=== PATIENT | male | born 1945 | race Caucasian/White ===

== ENCOUNTER 2023-01-19 00:15 | Inpatient (IN) | payer MEDICARE, OTHER, SELFPAY ==
[2023-01-19] VITALS (36 sets, daily range): BP systolic 122–153; BP diastolic 68–95; PULSE 65–109; RESP 12–26; TEMP 36.4–37.1; O2SAT 95–99; BMI 30.6
--- NOTE | 2023-01-19 | ECHO_ITS ---
Patient Info Name: Mac Saldaña Age: 77 years : 1945 Gender: Male Ht: 70 in Wt: 224 lbs BSA: 2.27 m2 HR: 65 bpm BP: 138 / 80 mmHg Heart Rhythm: Sinus Rhythm Technical Quality: Good Exam Date: 01/19/2023 1:40 PM Exam Location: [facility] Pulmonary Patient Status: Inpatient Admit Date: 01/19/2023 Staff Ordering Physician: Mary Ann Rodriguez PA-C Per Diem Physical Therapist: Abiel Canseco RDCS Attending Provider: Sanjay Guzman MD Referring Physician: Michael MURPHY; Exam Type: CA echo doppler color flow Study Info Indications - possible CHF Complete two-dimensional, color flow and Doppler transthoracic echocardiogram is performed. Summary 1. Complete two-dimensional, color flow and Doppler transthoracic echocardiogram is performed. 2. Normal left ventricular size and function. mild left ventricular hypertrophy with sigmoid hypertrophy. Ejection fraction 60-65%. Grade 2 diastolic dysfunction is present. 3. There is severe aortic valve calcification and likely moderate aortic valve stenosis. The peak transvalvular velocity is 2.9 M/SEC, mean gradient 19 mmHg, aortic valve TVI 64. For unknown reasons the aortic valve area was not calculated on this study. Trace aortic insufficiency. 4. There is mild tricuspid valve regurgitation. 5. No pulmonary hypertension, estimated pulmonary arterial systolic pressure is 31 mmHg. 6. Left atrial chamber dimension is moderately enlarged. 7. Underlying rhythm appears to be atrial fibrillation. Left Ventricle Left ventricular chamber dimension is normal. Left ventricular systolic function is normal, estimated at 60-65%. There is mildly increased left ventricular wall thickness. Left ventricular septal wall motion is normal. The left ventricular diastolic function is grade II diastolic dysfunction. Right Ventricle Right ventricular chamber dimension is normal. Right ventricular systolic function is normal. Left Atria Left atrial chamber dimension is moderately enlarged. Right Atria Right atrial chamber dimension is normal. Aortic Valve The aortic valve is trileaflet. There is no aortic valve sclerosis. There is severe aortic valve calcification and likely moderate aortic valve stenosis. The peak transvalvular velocity is 2.9 M/SEC, mean gradient 19 mmHg, aortic valve TVI 64. For unknown reasons the aortic valve area was not calculated on this study. Trace aortic insufficiency. There is trace aortic valve regurgitation. There is severe aortic valve calcification. Pulmonic Valve The pulmonic valve is normal. There is no pulmonic valve stenosis. There is no pulmonic regurgitation. Mitral Valve The mitral valve has normal leaflets. There is no mitral valve stenosis. There is no mitral valve regurgitation. The mitral valve annulus is moderately calcified. Tricuspid Valve The tricuspid valve leaflets are normal. There is no significant tricuspid valve stenosis. There is mild tricuspid valve regurgitation. No pulmonary hypertension, estimated pulmonary arterial systolic pressure is 31 mmHg. Pericardium/Pleural The pericardium appears normal. There is no pericardial effusion. Inferior Vena Cava Not well visualized inferior vena cava with >50% collapse upon inspiration consistent with Empty right atrial pressure, 10 mmHg. Aorta The aortic root size at the sinus of Valsalva is normal. The prox ascending aorta size is normal. Left Ventricular Outflow Tract Name Value Normal
--- NOTE | ~2023-01-19 | XR_ITS ---
EXAMINATION: XR chest 1V portable DATE: 01/19/2023 00:56 INDICATION: New onset atrial fibrillation, weakness and shortness of breath TECHNIQUE: frontal view of the chest was obtained. COMPARISON: Chest radiograph dated 04/14/2018 FINDINGS: Cardiomegaly with decreasing pulmonary vascular congestion. Mild increased interstitial pattern in th e lower lung zones consistent with mild pulmonary edema. I see chronic pleural parenchymal scarring a long the right lung base. No pneumothorax or definitive pleural effusion. Bilateral old healed clavic le fracture and multiple bilateral old healed rib fractures. IMPRESSION: 1. Likely congestive heart failure with cardiomegaly, pulmonary vascular congestion and mild bibasila r pulmonary edema. Reviewed, dictated and finalized at location A. IMPRESSION: 1. Likely congestive heart failure with cardiomegaly, pulmonary vascular conges tion and mild bibasilar pulmonary edema.
--- NOTE | ~2023-01-19 | CT_ITS ---
EXAMINATION: CTA chest PE protocol DATE: 01/19/2023 03:34 INDICATION: Dyspnea on exertion. Chest heaviness. TECHNIQUE: Computed tomography angiography (CTA) of the chest was performed with 100 mL Omnipaque-350 intravenous contrast timed to evaluate the pulmonary arteries. Coronal maximum intensity projection 3D-reconstructions were created by the technologist. Automated exposure control and iterative reconst ruction technique were employed. The dose-length product was 1072.71 mGy-cm. COMPARISON: None. FINDINGS: The lungs demonstrate mild atelectasis. There is smooth septal thickening bilaterally, cons istent mild pulmonary edema. Calcified right lung nodules and calcified right hilar lymph nodes are c onsistent with old granulomatous disease. No pleural effusion. There is left atrial enlargement of th e heart. There are coronary artery calcifications. There are calcifications of the aortic valve. No p ericardial effusion. There are cysts in the kidneys measuring up to 3.5 cm on the left. Aortic athero sclerosis is noted. There is no pulmonary embolus. There are bridging endplate osteophytes at multipl e levels in the spine, consistent with diffuse idiopathic skeletal hyperostosis (DISH). There are old healed fractures of the clavicles and multiple ribs. IMPRESSION: 1. No pulmonary embolus. Sensitivity is mildly decreased by motion artifact. 2. Mild pulmonary edema. Reviewed, dictated and finalized at location E.
--- NOTE | 2023-01-19 00:20 | ECG_ITS ---
Measurements Intervals [place] Rate: 102 P: RI: 0 QRS: -20 QRSD: 114 T: 27 QT: 342 QTc: 446 Interpretive Statements ATRIAL FIBRILLATION WITH RAPID VENTRICULAR RESPONSE INCOMPLETE RIGHT BUNDLE BRANCH BLOCK [90+ ms QRS DURATION, TERMINAL R IN V1/V2, 40+ ms S IN I/aVL/V4/V5/V6] ABNORMAL RHYTHM ECG NO PREVIOUS ECG AVAILABLE FOR COMPARISON Electronically Signed On 01-19-2023 9:24:24 CDT by Rosalie Courtney M.D.
[2023-01-19 01:10] LABS: Ethanol < 10 mg/dL (<10)
[2023-01-19 01:11] LABS: Anion Gap 6 mmol/L (8-16); Blood Urea Nitrogen 15 mg/dL (9-20); Calcium 9.3 mg/dL (8.4-10.2); Carbon Dioxide 24 mmol/L (22-30); Chloride 98 mmol/L (98-107); Estimated CRCL calculation 80 ml/min; Estimated Glomerular Filt Rate > 60; Glucose 159 mg/dL (65-110); Potassium 3.6 mmol/L (3.4-5.0); Sodium 128 mmol/L (137-145)
[2023-01-19 01:14] LABS: Basophils Absolute Auto 0.1 K/mm3 (0.0-0.1); Basophils Percent Auto 0.7 % (0.2-1.2); Eosinophils Absolute Auto 0.2 K/mm3 (0-0.3); Eosinophils Percent Auto 2.6 % (0-4.4); Hematocrit 40.3 % (42.0-52.0); Hemoglobin 13.6 g/dL (14.0-18.0); Immature Granulocyte Absolute 0.02 K/mm3 (0.00-0.031); Immature Granulocyte Percent A 0.2 % (0-0.5); Lymphocytes Absolute Auto 1.79 K/mm3 (0.9-3.2); Lymphocytes Percent Auto 22.3 % (18.3-44.2); Mean Corpuscular HGB Conc 33.7 g/dl (32-36); Mean Corpuscular Hemoglobin 31.1 pg (26-34); Mean Corpuscular Volume 92.2 fl (80-100); Mean Platelet Volume 9.1 fl (7.4-10.4); Monocytes Absolute Auto 0.8 K/mm3 (0.1-0.6); Monocytes Percent Auto 9.7 % (2.6-8.5); Neutrophils Absolute Auto 5.2 K/mm3 (1.3-6.7); Neutrophils Percent Auto 64.5 % (45.5-73.1); Platelet Count Result 213 k/mm3 (150-375); Red Blood Count 4.37 M/mm3 (4.6-6.20); Red Cell Distribution Width 12.6 % (11.5-14.5)
[2023-01-19 01:26] LABS: Troponin I < 0.012 ng/mL (0.000-0.034)
[2023-01-19 02:15] LABS: Appearance Urine Clear (Clear); Bilirubin Urine Negative (Negative); Blood Urine Negative (Negative); Color Urine Yellow (Yellow); Glucose Urine UA Negative (Negative); Ketones Urine Negative (Negative); Leukocyte Esterase Ur Negative LEU/UL (Negative); Nitrate Urine Negative (Negative); Protein Urine Negative (Negative); Specific Grav Ur 1.013 (1.001-1.035); Urobilinogen Urine 0.2 mg/dL (<2.0); pH Urine 6.5 (5.0-9.0)
--- NOTE | 2023-01-19 02:25 | PC.NURSE ---
Called lab to add on BNP, spoke to Ysabel.
[2023-01-19 02:38] LABS: Add Urine Microscopic? NO
[2023-01-19 03:05] LABS: NT Pro B Type Natriuretic Pept 484 pg/mL (19.9-100)
[2023-01-19] MEDS: LORazepam INJ (*CRX) 2 MG/ML VIAL 1 MG IV PUSH (03:10)
--- NOTE | 2023-01-19 03:20 | PC.NURSE ---
Patient taken to CT via w/c at this time.
--- NOTE | 2023-01-19 03:43 | ED.WEAKNESS ---
HPI - Weakness General Chief complaint: Weakness <Pastora Ryan MD - Last Filed: 01/19/23 07:41> Stated complaint: GEN WKNS S/P CHEST HEAVINESS <Pastora Ryan MD - Last Filed: 01/19/23 07:41> Time Seen by Provider: 01/19/23 00:25 <Pastora Ryan MD - Last Filed: 01/19/23 07:41> History of Present Illness HPI Narrative: Patient reports having some feeling of chest heaviness and dyspnea on exertion that has been ongoing for possibly months, but today earlier was with family and then noticed the sensation again. No history of heart disease, just hypertension. <Pastora Ryan MD - Last Filed: 01/19/23 07:41> Related Data Home medications: Home Medications Medication Instructions Recorded Confirmed amlodipine 10 mg-benazepril 40 mg cap 01/19/23 capsule folic acid 1 mg tablet 01/19/23 losartan 100 tablet 01/19/23 mg-hydrochlorothiazide 25 mg tablet meloxicam 7.5 mg tablet mg 01/19/23 methotrexate sodium 2.5 mg tablet mg 01/19/23 rosuvastatin 10 mg tablet mg 01/19/23 <Pastora Ryan MD - Last Filed: 01/19/23 07:41> Allergies/Adverse reactions: Allergies Allergy/AdvReac Type Severity Reaction Status Date / Time No Known Allergies Allergy Verified 01/19/23 00:28 <Pastora Ryan MD - Last Filed: 01/19/23 07:41> Review of Systems Review of Systems: CONST: No fever. HEENT: No sore throat C/V: Chest heaviness RESP: Dyspnea on exertion GI: No abdominal pain : No dysuria. M/S: No joint pain. SKIN: No rash. NEURO: [No headache or focal numbness or weakness] PSYCH: [No depression] <Pastora Ryan MD - Last Filed: 01/19/23 07:41> Exam Narrative: EXAMINATION OF ORGAN SYSTEMS/BODY AREAS: Constitutional: Vital signs per nursing GENERAL:[No acute distress, non-toxic appearing.] HEAD: Normal with no signs of head trauma. EYES: EOMI, conjunctiva normal ENT: Hearing grossly intact LUNGS: Nonlabored breathing. HEART: Irregularly irregular ABD: [Soft], [nontender to palpation] EXT: Normal range of motion SKIN: [No rashes or lesions.] NEURO: [Alert and oriented x 3. No gross focal sensory or strength deficits.] PSYCH: Normal affect <Pastora Ryan MD - Last Filed: 01/19/23 07:41> Course Reevaluation(s) Reevaluation #1: Patient care was signed out to me by Dr. Hedrick. Dr. Hderick did speak to the hospitalist and patient was admitted to [facility] telemetry. <Juaquin Santana MD - Last Filed: 01/19/23 09:49> Vital Signs Vital signs: Vital Signs Temperature 98.7 F 01/19/23 00:13 Pulse Rate 102 H 01/19/23 00:13 Respiratory Rate 19 01/19/23 00:13 Blood Pressure 152/81 H 01/19/23 00:13 Pulse Oximetry 98 01/19/23 00:13 Oxygen Delivery Room Air 01/19/23 00:13 Temperature 98.7 F 01/19/23 00:13 Pulse Rate 85 01/19/23 09:01 Respiratory Rate 22 H 01/19/23 09:01 Blood Pressure 135/91 H 01/19/23 09:01 Pulse Oximetry 97 01/19/23 09:01 Oxygen Delivery Room Air 01/19/23 00:13 <Pastora Ryan MD - Last Filed: 01/19/23 07:41> Vital Signs Temperature 98.7 F 01/19/23 00:13 Pulse Rate 102 H 01/19/23 00:13 Respiratory Rate 19 01/19/23 00:13 Blood Pressure 152/81 H 01/19/23 00:13 Pulse Oximetry 98 01/19/23 00:13 Oxygen Delivery Room Air 01/19/23 00:13 Temperature 98.7 F 01/19/23 00:13 Pulse Rate 85 01/19/23 09:01 Respiratory Rate 22 H 01/19/23 09:01 Blood Pressure 135/91 H 01/19/23 09:01 Pulse Oximetry 97 01/19/23 09:01 Oxygen Delivery Room Air 01/19/23 00:13 <Juaquin Santana MD - Last Filed: 01/19/23 09:49> MDM - Weakness MDM Narrative Medical decision making narrative: 77-year-old male presenting with new onset atrial fibrillation, unknown actual time of onset since he reports that he has been having some vague symptoms on and off for months. EKG - 12-Lead: Performed at 0023. Interpreted by me. Atrial fibrillation. Rate 102. [Normal] axis. NC-interval n/a. QRS duration [no
[2023-01-19] MEDS: METOPROLOL SUCCINATE EXT REL 25 MG TABCR PO (10:05)
[2023-01-19] MEDS: APIXABAN 5 MG TABLET PO ×2 (10:05→20:43)
--- NOTE | 2023-01-19 11:31 | PM.IMHP ---
H&P: HPI History of Present Illness Date/Time: 01/19/23 11:31 Chief Complaint: Shortness of breath, dizziness Narrative: This is a 77-year-old male with a past medical history of rheumatoid arthritis and hypertension that presented to the ED on 01/19/2023 due to shortness of breath and dizziness. Patient had developed shortness of breath with activity and dizziness in the evening. Patient denies any chest pain, heart palpitations, or visual changes. Patient does have a chronic cough without sputum production. He denies any lower extremity edema. He does have a smoking history and quit in 1996. Prior to that he smoked approximately 4-5 packs a day. He also consumes approximately 10 beers per night. In the ED he was found to have AFib with a heart rate of 102. His troponin was within normal limits and a BNP of 484. His BNP is within normal range for someone his age. Chest x-ray showed some likely congestive heart failure with cardiomegaly, pulmonary vascular congestion and mild bibasilar pulmonary edema. CTA negative for pulmonary embolism. Per patient he has no known history of congestive heart failure. He does have history of a leaky valve and is not sure which valve it is. His last echocardiogram was over a year ago. While in the ED patient received 1 dose of Ativan. He was admitted into observation due to new onset AFib and for a cardiac workup. Review of Systems Review of Systems: All systems reviewed & are unremarkable except as noted in HPI and below PMFSH Past Medical History Medical History (Updated 01/19/23 @ 11:43 by Mary Ann Rodriguez PA-C) A-fib (~01/2023) Hypertension Rheumatoid arthritis Social History Social History Social History: patient lives with his son and [id number]. He drinks about 10 beers per night and has a approximately 40 year smoking history of 4-5 packs per day. He quit smoking in 1996. Smoking status: Former smoker Alcohol intake: current Drinks per week: 7 Substance use: never Lack of Transportation: No Lack of Food: Never True Current Housing: I Have Housing Concerned About Future Housing: No Difficulty Paying Gas/Electric Bills: No Difficulty Paying for Meds: No Currently Unemployed: No Education: Bachelor's Degree Difficulty w/ Childcare or Family Care: No Spiritual care concerns: No Meds Home Medications and Allergies Home Medications Medication Instructions Recorded Confirmed Type amlodipine 10 mg-benazepril 40 mg 1 cap PO DAILY 01/19/23 01/19/23 History capsule folic acid 1 mg tablet 1 mg PO DAILY 01/19/23 01/19/23 History losartan 100 1 tablet PO DAILY 01/19/23 01/19/23 History mg-hydrochlorothiazide 25 mg tablet meloxicam 7.5 mg tablet 7.5 mg PO DAILY 01/19/23 01/19/23 History methotrexate sodium 2.5 mg tablet 10 mg PO WEEKLY 01/19/23 01/19/23 History svfqpcvd-fm-tsndh 300 mcg-K 60 1 tablet PO DAILY 01/19/23 01/19/23 History mcg-lycop 600 mcg-lutein 300 mcg tablet (Centrum Silver Men) rosuvastatin 10 mg tablet 10 mg PO DAILY 01/19/23 01/19/23 History Allergies Allergy/AdvReac Type Severity Reaction Status Date / Time No Known Allergies Allergy Verified 01/19/23 00:28 Vital Signs Vital Signs - 24 hr 01/19/23 00:13 01/19/23 00:17 01/19/23 00:18 Temperature 98.7 F Pulse Rate 102 H 108 H 109 H Respiratory Rate 19 16 22 H Blood Pressure 152/81 H 152/81 H Pulse Oximetry 98 99 97 Oxygen Delivery Room Air 01/19/23 00:30 01/19/23 00:31 01/19/23 00:45 Temperature Pulse Rate 93 94 95 Respiratory Rate 21 H 22 H 18 Blood Pressure 122/68 Pulse Oximetry 97 97 97 Oxygen Delivery 01/19/23 00:46 01/19/23 01:00 01/19/23 01:01 Temperature Pulse Rate 95 91 93 Respiratory Rate 12 23 H 22 H Blood Pressure 124/77 133/73 Pulse Oximetry 97 97 96 Oxygen Delivery 01/19/23 01:15 01/19/23 01:30 01/19/23 01:31 Temperature
[2023-01-19 12:12] LABS: Glucose Point of Care 117 mg/dl (65-105)
[2023-01-19 18:00] LABS: Glucose Point of Care 208 mg/dl (65-105)
[2023-01-20] VITALS (10 sets, daily range): BP systolic 121–141; BP diastolic 73–93; PULSE 78–91; RESP 16–18; TEMP 35.3–36.5; O2SAT 97–99
[2023-01-20 00:32] LABS: Glucose Point of Care 95 mg/dl (65-105)
[2023-01-20 06:11] LABS: Glucose Point of Care 132 mg/dl (65-105)
[2023-01-20 06:33] LABS: Hematocrit 44.8 % (42.0-52.0); Hemoglobin 14.7 g/dL (14.0-18.0); Mean Corpuscular HGB Conc 32.8 g/dl (32-36); Mean Corpuscular Hemoglobin 30.6 pg (26-34); Mean Corpuscular Volume 93.3 fl (80-100); Mean Platelet Volume 9.2 fl (7.4-10.4); Platelet Count Result 222 k/mm3 (150-375); Red Cell Distribution Width 12.4 % (11.5-14.5); White Blood Count 8.3 K/mm3 (4.5-10.0)
[2023-01-20 06:48] LABS: Alanine Aminotransferase 31 U/L (6-50); Albumin Level 4.1 g/dL (3.5-5.1); Alkaline Phosphatase 67 U/L (38-126); Anion Gap 5 mmol/L (8-16); Aspartate Amino Transferase 30 U/L (17-59); Bilirubin,Total 0.6 mg/dL (0.2-1.3); Blood Urea Nitrogen 10 mg/dL (9-20); Calcium 9.3 mg/dL (8.4-10.2); Carbon Dioxide 29 mmol/L (22-30); Chloride 103 mmol/L (98-107); Estimated CRCL calculation 79 ml/min; Estimated Glomerular Filt Rate > 60; Glucose 113 mg/dL (65-110); Potassium 4.1 mmol/L (3.4-5.0); Sodium 137 mmol/L (137-145)
[2023-01-20] MEDS: METOPROLOL SUCCINATE EXT REL 25 MG TABCR PO (08:24)
[2023-01-20] MEDS: amLODIPine BESYLATE 5 MG TABLET 10 MG PO (08:24)
[2023-01-20] MEDS: LOSARTAN POTASSIUM 100 MG TABLET PO (08:24)
[2023-01-20] MEDS: APIXABAN 5 MG TABLET PO ×2 (08:24→20:08)
[2023-01-20 12:09] LABS: Glucose Point of Care 111 mg/dl (65-105)
--- NOTE | 2023-01-20 13:48 | PM.CNCAR ---
Assessment and Plan Assessment and plan (1) Acute diastolic CHF (congestive heart failure): Code(s): I50.31 - Acute diastolic (congestive) heart failure Status: Acute Assessment and Plan: Patient presents with acute diastolic CHF. His chest x-ray looks worse than his proBNP is. He has chronic diastolic dysfunction and chronic aortic stenosis, probably moderate. The new problem appears to be his atrial fibrillation. The rate is controlled now with metoprolol. He has not rec'd any diuretics but I recommend that we give him a couple doses of IV furosemide. --furosemide 20 mg IV push daily --BMP daily (2) A-fib: Onset Date: ~01/2023 Code(s): I48.91 - Unspecified atrial fibrillation Status: Acute Assessment and Plan: Atrial fibrillation with a mildly increased heart rate response, improved with metoprolol. Likely new since he saw his PMD last month when all was well. New onset a fib may be the factor which exacerbated the patient's diastolic dysfunction and caused CHF. --check TSH --counseled patient about AFib --agree with anticoagulation, Eliquis 5 mg b.i.d. started --MAGUI guided cardioversion, probably tomorrow depending on schedule and staffing. --home tomorrow after CV? (3) Aortic stenosis: Code(s): I35.0 - Nonrheumatic aortic (valve) stenosis Status: Acute Assessment and Plan: Aortic stenosis with a mean gradient of 19 mmHg, probably moderate in severity. --can check aortic valve area again by planimetry of the aortic valve, tomorrow with a MAGUI --would like to obtain more echo images as an outpatient to calculate the BENI --follow every 6 months to 1 year --if it becomes severe, consider a TAVR --Request records/echo fr Dr. Glez (4) Alcoholism: Code(s): F10.20 - Alcohol dependence, uncomplicated Status: Acute Assessment and Plan: Drinks 10 beers a day. No history of falls. History of Present Illness History of Present Illness Consult date/time: 01/20/23 13:48 Reason For Visit: afib,chf Narrative: Mr. 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 He has a history of hypertension,, hyperlipidemia, rheumatoid arthritis as well as heavy alcohol consumption (10 beers/day). The patient has a history of valve disease and was getting an echo every year until Dr. Glez retired last year. He saw his primary care doctor, Dr. Burrows, last month and all was well. He has had some LUNA walking to the mailbox biplane did on the heated humidity. Saturday he was able to run errands and do chores but noted he was a little short of breath in the afternoon and had to stop and rest. He went back to work and in the evening he noted several episodes of LUNA with minor exertion such as walking a few feet and he felt a little dizzy. No chest pain, palpitations, edema. Presented to the emergency room at midnight yesterday with shortness of breath and dizziness. He is found to have AFib with a heart rate of 102. He also has new onset of CHF. He was given IV Ativan and started on metoprolol and Eliquis. No diuretics as yet. Not needing O2. No orthopnea. TSH? Troponin negative x1, proBNP 484, no TSH as yet. 01/19/2023 EKG at at 12:23 a.m.: AFib rate 102, no ischemic changes, personally reviewed Echo showed EF 60-65%, diastolic dysfunction and severe aortic valve calcification with probably moderate aortic stenosis, (peak velocity 2.9 m/sec, mean gradient 19 mmHg) 01/19/2023 chest x-ray: 1. Likely congestive heart failure with cardiomegaly, pulmonary vascular congestion and mild bibasilar pulmonary edema. Personally reviewed, agree. CTA: IMPRESSION: 1. No pulmonary embolus. Sensitivity is mildly decreased by motion artifact. 2. Mild pulmonary edema Also has coronary artery calcifications
--- NOTE | 2023-01-20 15:06 | PM.IMPN ---
Progress Note: A&P Assessment and Plan (1) A-fib: Onset Date: ~01/2023 Qualifiers: Atrial fibrillation type: unspecified Qualified Code(s): I48.91 - Unspecified atrial fibrillation Code(s): I48.91 - Unspecified atrial fibrillation Status: Acute Assessment and Plan: Patient found to have AFib with a heart rate of 102 in the ED. Chest x-ray concerning for possible CHF. BNP within normal range of patient's age and troponin negative in the ED. Patient started on Eliquis 5 mg b.i.d. and metoprolol XR 25 mg daily. Will consult care coordination for medication pricing. Echocardiogram evealing grade 2 diastolic dysfunction with preserved ejection fraction with moderate aortic stenosis. Cardiology consulted. Cardiology planning for possible CHRIS guided cardioversion tomorrow. (2) Congestive heart failure: Qualifiers: Heart failure type: diastolic Heart failure chronicity: acute on chronic Qualified Code(s): I50.33 - Acute on chronic diastolic (congestive) heart failure Code(s): I50.9 - Heart failure, unspecified Status: Acute Assessment and Plan: echocardiogram revealing grade 2 diastolic dysfunction with preserved ejection fraction and moderate aortic stenosis. Cardiology consulted. Cardiology recommending furosemide 20 mg IV push daily. Chris tomorrow to evaluate aortic valve. Recommending follow-up with Cardiology as an outpatient. (3) Hyponatremia: Code(s): E87.1 - Hypo-osmolality and hyponatremia Status: Acute Assessment and Plan: Likely due to patient's Hydrochlorothiazide. Will put diuretics on hold for now. (4) Alcoholism: Code(s): F10.20 - Alcohol dependence, uncomplicated Status: Acute Assessment and Plan: patient drinks approximately 10 beers per night. Initiate CIWA protocol Ativan p.r.n. for CIWA greater than 8. Alcohol level less than 10 on arrival to ED. Plan Patient was on an Bandar and an Arb. Benazepril discontinued. Subjective Date/time seen: 01/20/23 15:06 Interval history: Patient feeling well today. Patient is up to the side of the bed in a good mood. States that he has not had any symptoms of shortness of breath, dizziness, chest tightness, heart palpitations or lightheadedness. Discussed with patient the need for a Cardiology consult due to patient's diastolic dysfunction. He was agreeable. Exam Narrative: GENERAL: Comfortable, no acute distress HENMT: moist mucous membranes EYES: EOM intact b/l NECK: no lymphadenopathy RESPIRATORY: clear to auscultation but distant breath sounds CARDIO: Irregular rhythm rate controlled, murmur present GI: soft, nontender, bowel sounds present SKIN: no rashes EXTREMITIES: no edema, redness or tenderness Objective Data Vital Signs Vital Signs: Vital Signs - 24 hr 01/19/23 16:00 01/19/23 20:00 01/19/23 20:00 Temperature Pulse Rate 88 79 Respiratory Rate Blood Pressure Pulse Oximetry 97 Oxygen Delivery Room Air 01/19/23 22:00 01/20/23 00:00 01/20/23 06:00 Temperature 97.5 F L 97.2 F L Pulse Rate 87 83 85 Respiratory Rate 14 16 Blood Pressure 153/83 H 141/93 H Pulse Oximetry 98 97 Oxygen Delivery 01/20/23 08:24 01/20/23 08:25 01/20/23 09:23 Temperature Pulse Rate 91 Respiratory Rate Blood Pressure Pulse Oximetry 97 Oxygen Delivery Room Air Room Air 01/20/23 08:00 01/20/23 12:00 01/20/23 14:00 Temperature 97.7 F Pulse Rate 88 83 80 Respiratory Rate 16 Blood Pressure 121/73 Pulse Oximetry 99 Oxygen Delivery Intake/Output Intake/Output: Intake & Output 01/17/23 01/18/23 01/19/23 01/20/23 23:59 23:59 23:59 23:59 Intake Total 480 470 Output Total 2100 3033 Ywoxart -[id number] -992 Meds/Results Medications: Active Medications Generic Name Dose Route Start Last Admin Trade Name Freq PRN Reason Stop Dose Ad
[2023-01-20] MEDS: FUROSEMIDE INJ 40 MG/4 ML VIAL 20 MG IV PUSH (15:39)
[2023-01-21] VITALS (10 sets, daily range): BP systolic 104–147; BP diastolic 64–90; PULSE 67–85; RESP 18; TEMP 35.7–36.3; O2SAT 93–100
[2023-01-21 00:14] LABS: Glucose Point of Care 106 mg/dl (65-105)
[2023-01-21 06:19] LABS: Hematocrit 44.4 % (42.0-52.0); Hemoglobin 14.8 g/dL (14.0-18.0); Mean Corpuscular HGB Conc 33.3 g/dl (32-36); Mean Corpuscular Hemoglobin 31.2 pg (26-34); Mean Corpuscular Volume 93.5 fl (80-100); Mean Platelet Volume 8.9 fl (7.4-10.4); Platelet Count Result 202 k/mm3 (150-375); Red Blood Count 4.75 M/mm3 (4.6-6.20); Red Cell Distribution Width 12.6 % (11.5-14.5); White Blood Count 8.5 K/mm3 (4.5-10.0)
[2023-01-21 06:32] LABS: Anion Gap 5 mmol/L (8-16); Blood Urea Nitrogen 12 mg/dL (9-20); Calcium 9.2 mg/dL (8.4-10.2); Carbon Dioxide 26 mmol/L (22-30); Chloride 102 mmol/L (98-107); Estimated CRCL calculation 79 ml/min; Estimated Glomerular Filt Rate > 60; Glucose 115 mg/dL (65-110); Potassium 4.1 mmol/L (3.4-5.0); Sodium 133 mmol/L (137-145)
[2023-01-21 06:46] LABS: NT Pro B Type Natriuretic Pept 590 pg/mL (19.9-100)
[2023-01-21 06:49] LABS: Glucose Point of Care 123 mg/dl (65-105)
[2023-01-21] MEDS: amLODIPine BESYLATE 5 MG TABLET 10 MG PO (09:15)
[2023-01-21] MEDS: APIXABAN 5 MG TABLET PO ×2 (09:16→21:03)
[2023-01-21] MEDS: FUROSEMIDE INJ 40 MG/4 ML VIAL 20 MG IV PUSH (09:16)
[2023-01-21] MEDS: METOPROLOL SUCCINATE EXT REL 25 MG TABCR PO (09:16)
[2023-01-21] MEDS: LOSARTAN POTASSIUM 100 MG TABLET PO (09:16)
--- NOTE | 2023-01-21 10:38 | PM.PNCARD ---
Progress Note: A&P Assessment and Plan (1) Acute diastolic CHF (congestive heart failure): Code(s): I50.31 - Acute diastolic (congestive) heart failure Status: Acute Assessment and Plan: Patient presents with acute diastolic CHF. His chest x-ray looks worse than his proBNP is. He has chronic diastolic dysfunction and chronic aortic stenosis, probably moderate. The new problem appears to be his atrial fibrillation. The rate is controlled now with metoprolol. --furosemide 20 mg p.o. daily --BMP daily (2) A-fib: Onset Date: ~01/2023 Qualifiers: Atrial fibrillation type: unspecified Qualified Code(s): I48.91 - Unspecified atrial fibrillation Code(s): I48.91 - Unspecified atrial fibrillation Status: Acute Assessment and Plan: Atrial fibrillation with a mildly increased heart rate response, improved with metoprolol. Likely new since he saw his PMD last month when all was well. New onset a fib may be the factor which exacerbated the patient's diastolic dysfunction and caused CHF. --agree with anticoagulation, Eliquis 5 mg b.i.d. started --MAGUI guided cardioversion tomorrow with anesthesia --home tomorrow after CV? (3) Aortic stenosis: Code(s): I35.0 - Nonrheumatic aortic (valve) stenosis Status: Acute Assessment and Plan: Aortic stenosis with a mean gradient of 19 mmHg, probably moderate in severity. --can check aortic valve area again by planimetry of the aortic valve, tomorrow with a MAGUI --would like to obtain more echo images as an outpatient to calculate the BENI --follow every 6 months to 1 year --if it becomes severe, consider a TAVR --Request records/echo fr Dr. Glez (4) Alcoholism: Code(s): F10.20 - Alcohol dependence, uncomplicated Status: Acute Assessment and Plan: Drinks 10 beers a day. No history of falls. Subjective Date/time seen: 01/21/23 10:38 Interval history: Cardiology follow up for atrial fibrillation, , CHF Feeling well today and has no complaints. He denies any chest pain, shortness of breath, palpitations. No swelling. Review of Systems Constitutional: Constitutional: Denies fever(s) Eyes: Eyes: Reports no additional eye complaints ENT: Denies epistaxis Cardiovascular: Cardiovascular: Denies chest pain, Denies pedal edema, Denies lightheadedness, Denies palpitations, Reports dyspnea and Reports dyspnea on exertion Respiratory: Respiratory: Denies chest congestion, Reports dyspnea and Reports dyspnea on exertion Gastrointestinal: Gastrointestinal: Denies abdominal pain and Denies hematochezia Genitourinary: Genitourinary: Denies hematuria Musculoskeletal: Musculoskeletal: Reports no additional musculoskeletal complaints Integumentary/Breasts: Skin/Breast: Reports system reviewed and no additional complaints, except as docu Neurologic: Reports system reviewed and no additional complaints, except as documented, Denies behavioral changes and Denies confusion Psychiatric: Psychiatric: Denies behavioral changes and Denies confusion Endocrine: Endocrine: Denies palpitations Exam Const: General: cooperative, healthy appearing and comfortable; No confusion Orientation/consciousness: oriented to person, patient oriented x3 and No confusion HENMT: Mouth: Yes moist mucous membranes Other: Dentures Eyes: General: appearance normal, both eyes and all related structures EOM: EOMs intact bilaterally Neck: Neck: supple and no JVD Thyroid: thyroid normal Carotids: no bruits Resp: Effort & Inspection: normal respiratory effort Auscultation: crackles (a few scattered crackles) Cardio: Rate: regular rate Rhythm: abnormal rhythm Heart sounds: Murmur heart sound present (3/6 CARIE radiating to the carotid arteries, preserved S2) GI: Inspection: normal to inspection Skin: General skin exam: normal color and no rashes or lesions noted Neuro: General: oriented to person, patient or
[2023-01-21 11:41] LABS: Glucose Point of Care 124 mg/dl (65-105)
--- NOTE | 2023-01-21 13:53 | PM.IMPN ---
Progress Note: A&P Assessment and Plan (1) A-fib: Onset Date: ~01/2023 Qualifiers: Atrial fibrillation type: unspecified Qualified Code(s): I48.91 - Unspecified atrial fibrillation Code(s): I48.91 - Unspecified atrial fibrillation Status: Acute Assessment and Plan: Patient found to have AFib with a heart rate of 102 in the ED. Chest x-ray concerning for possible CHF. BNP within normal range of patient's age and troponin negative in the ED. Patient started on Eliquis 5 mg b.i.d. and metoprolol XR 25 mg daily. Will consult care coordination for medication pricing. Echocardiogram evealing grade 2 diastolic dysfunction with preserved ejection fraction with moderate aortic stenosis. Cardiology consulted. Cardiology planning for possible CHRIS guided cardioversion tomorrow. (2) Congestive heart failure: Qualifiers: Heart failure type: diastolic Heart failure chronicity: acute on chronic Qualified Code(s): I50.33 - Acute on chronic diastolic (congestive) heart failure Code(s): I50.9 - Heart failure, unspecified Status: Acute Assessment and Plan: echocardiogram revealing grade 2 diastolic dysfunction with preserved ejection fraction and moderate aortic stenosis. Cardiology consulted. Cardiology recommending furosemide 20 mg IV push daily. Chris tomorrow to evaluate aortic valve. Recommending follow-up with Cardiology as an outpatient. (3) Hyponatremia: Code(s): E87.1 - Hypo-osmolality and hyponatremia Status: Acute Assessment and Plan: Likely due to patient's Hydrochlorothiazide. Will put diuretics on hold for now. (4) Alcoholism: Code(s): F10.20 - Alcohol dependence, uncomplicated Status: Acute Assessment and Plan: patient drinks approximately 10 beers per night. Initiate CIWA protocol Ativan p.r.n. for CIWA greater than 8. Alcohol level less than 10 on arrival to ED. Plan Patient was on an Bandar and an Arb. Benazepril discontinued. Subjective Date/time seen: 01/21/23 13:53 Interval history: Patient doing well today with no new complaints. He denies chest pain, heart palpitations, shortness of breath and lower extremity edema. Patient scheduled for a CHRIS tomorrow at noon. Cardiology's note he will likely be able to discharge after this. Review of Systems Review of Systems: All systems reviewed & are unremarkable except as noted in HPI and below Exam Narrative: GENERAL: Comfortable, no acute distress HENMT: moist mucous membranes EYES: EOM intact b/l NECK: no lymphadenopathy RESPIRATORY: clear to auscultation but distant breath sounds CARDIO: Irregular rhythm rate controlled, murmur present GI: soft, nontender, bowel sounds present SKIN: no rashes EXTREMITIES: no edema, redness or tenderness Objective Data Vital Signs Vital Signs: Vital Signs - 24 hr 01/20/23 14:00 01/20/23 16:00 01/20/23 20:00 Temperature 97.7 F Pulse Rate 80 87 Respiratory Rate 16 Blood Pressure 121/73 Pulse Oximetry 99 99 Oxygen Delivery Room Air 01/20/23 20:00 01/20/23 22:00 01/20/23 20:00 Temperature 95.6 F L Pulse Rate 78 90 Respiratory Rate 18 Blood Pressure 131/75 131/75 Pulse Oximetry 98 Oxygen Delivery 01/21/23 00:00 01/21/23 04:00 01/20/23 22:00 Temperature 97.1 F L Pulse Rate 80 83 Respiratory Rate Blood Pressure Pulse Oximetry Oxygen Delivery 01/21/23 06:00 01/21/23 09:16 01/21/23 12:00 Temperature 96.3 F L Pulse Rate 82 67 85 Respiratory Rate 18 Blood Pressure 147/90 H Pulse Oximetry 100 Oxygen Delivery 01/21/23 13:22 Temperature 96.8 F L Pulse Rate 79 Respiratory Rate 18 Blood Pressure 104/64 Pulse Oximetry 99 Oxygen Delivery Intake/Output Intake/Output: Intake & Output 01/18/23 01/19/23 01/20/23 01/21/23 23:59 23:59 23:59 23:59 Intake Total 480 1190 440 Outpu
[2023-01-21 17:46] LABS: Glucose Point of Care 97 mg/dl (65-105)
[2023-01-22] VITALS (11 sets, daily range): BP systolic 94–121; BP diastolic 62–77; PULSE 64–104; RESP 14–21; TEMP 36.5–36.9; O2SAT 95–99
--- NOTE | 2023-01-22 | ECG_ITS ---
Measurements Intervals [place] Rate: 71 P: 30 AK: 179 QRS: -37 QRSD: 116 T: 2 QT: 386 QTc: 421 Interpretive Statements SINUS RHYTHM MARKED LEFT AXIS DEVIATION [QRS AXIS < -30] INCOMPLETE RIGHT BUNDLE BRANCH BLOCK [90+ ms QRS DURATION, TERMINAL R IN V1/V2, 40+ ms S IN I/aVL/V4/V5/V6] COMPARED TO ECG 01/22/2023 11:02:25 SINUS RHYTHM REPLACES ATRIAL FIBRILLATION Electronically Signed On 01-22-2023 13:27:20 CDT by Girma Asher M.D.
--- NOTE | 2023-01-22 | ECG_ITS ---
Measurements Intervals [place] Rate: 87 P: OR: 0 QRS: -41 QRSD: 117 T: 18 QT: 362 QTc: 436 Interpretive Statements ATRIAL FIBRILLATION MARKED LEFT AXIS DEVIATION [QRS AXIS < -30] INCOMPLETE RIGHT BUNDLE BRANCH BLOCK [90+ ms QRS DURATION, TERMINAL R IN V1/V2, 40+ ms S IN I/aVL/V4/V5/V6] ABNORMAL ECG COMPARED TO ECG 01/19/2023 00:23:25 NO SIGNIFICANT CHANGE Electronically Signed On 01-22-2023 13:25:38 CDT by Girma Asher M.D.
[2023-01-22 04:18] LABS: Glucose Point of Care 116 mg/dl (65-105)
[2023-01-22 06:14] LABS: Glucose Point of Care 121 mg/dl (65-105)
[2023-01-22 07:22] LABS: Basophils Absolute Auto 0.1 K/mm3 (0.0-0.1); Basophils Percent Auto 0.9 % (0.2-1.2); Eosinophils Absolute Auto 0.2 K/mm3 (0-0.3); Eosinophils Percent Auto 2.6 % (0-4.4); Hematocrit 44.9 % (42.0-52.0); Hemoglobin 14.8 g/dL (14.0-18.0); Immature Granulocyte Absolute 0.04 K/mm3 (0.00-0.031); Immature Granulocyte Percent A 0.5 % (0-0.5); Lymphocytes Absolute Auto 1.91 K/mm3 (0.9-3.2); Lymphocytes Percent Auto 23.6 % (18.3-44.2); Mean Corpuscular Hemoglobin 30.9 pg (26-34); Mean Corpuscular Volume 93.7 fl (80-100); Mean Platelet Volume 9.6 fl (7.4-10.4); Monocytes Absolute Auto 0.9 K/mm3 (0.1-0.6); Monocytes Percent Auto 10.5 % (2.6-8.5); Neutrophils Percent Auto 61.9 % (45.5-73.1); Platelet Count Result 223 k/mm3 (150-375); Red Blood Count 4.79 M/mm3 (4.6-6.20); Red Cell Distribution Width 12.3 % (11.5-14.5); White Blood Count 8.1 K/mm3 (4.5-10.0)
[2023-01-22 07:36] LABS: Alanine Aminotransferase 30 U/L (6-50); Albumin Level 3.9 g/dL (3.5-5.1); Alkaline Phosphatase 66 U/L (38-126); Anion Gap 3 mmol/L (8-16); Aspartate Amino Transferase 33 U/L (17-59); Bilirubin,Total 0.7 mg/dL (0.2-1.3); Blood Urea Nitrogen 13 mg/dL (9-20); Calcium 9.2 mg/dL (8.4-10.2); Carbon Dioxide 27 mmol/L (22-30); Chloride 102 mmol/L (98-107); Estimated CRCL calculation 70 ml/min; Estimated Glomerular Filt Rate > 60; Glucose 107 mg/dL (65-110); Sodium 132 mmol/L (137-145)
[2023-01-22] MEDS: METOPROLOL SUCCINATE EXT REL 25 MG TABCR PO (08:58)
[2023-01-22] MEDS: METHOTREXATE 2.5 MG TAB (*CHEMO) 10 MG PO (08:58)
[2023-01-22] MEDS: APIXABAN 5 MG TABLET PO (08:59)
[2023-01-22] MEDS: amLODIPine BESYLATE 5 MG TABLET 10 MG PO (08:59)
[2023-01-22] MEDS: LOSARTAN POTASSIUM 100 MG TABLET PO (08:59)
[2023-01-22] MEDS: FUROSEMIDE INJ 40 MG/4 ML VIAL 20 MG IV PUSH (09:00)
--- NOTE | 2023-01-22 11:30 | WPDANESEPPF ---
Anes - Initial Pre Proc Eval Procedure: Operation Date: 01/22/23 12:30 Proposed Procedures p Trans Esophageal Echo - Girma Asher MD Date/Time: 01/22/23 11:30 Surgeon: Solomon Guzman MD Pre Op Diagnosis: afib,chf Patient Data Age: 77 Gender: M Height: 1.78 m Weight: 96.9 kg Last Vital Signs Temp 36.9 C 01/22/23 06:00 Pulse 94 01/22/23 09:00 Resp 20 01/22/23 06:00 BP 121/77 01/22/23 06:00 Pulse Ox 97 01/22/23 09:00 O2 Del Method Room Air 01/22/23 09:00 Allergies Allergy/AdvReac Type Severity Reaction Status Date / Time No Known Allergies Allergy Verified 01/19/23 00:28 Home Medications Medication Instructions Recorded Confirmed Type amlodipine 10 mg-benazepril 40 mg 1 cap PO DAILY 01/19/23 01/19/23 History capsule folic acid 1 mg tablet 1 mg PO DAILY 01/19/23 01/19/23 History losartan 100 1 tablet PO DAILY 01/19/23 01/19/23 History mg-hydrochlorothiazide 25 mg tablet meloxicam 7.5 mg tablet 7.5 mg PO DAILY 01/19/23 01/19/23 History methotrexate sodium 2.5 mg tablet 10 mg PO WEEKLY 01/19/23 01/19/23 History ssbapuxh-qa-idsbu 300 mcg-K 60 1 tablet PO DAILY 01/19/23 01/19/23 History mcg-lycop 600 mcg-lutein 300 mcg tablet (Centrum Silver Men) rosuvastatin 10 mg tablet 10 mg PO DAILY 01/19/23 01/19/23 History Laboratory Tests 01/21/23 01/21/23 01/22/23 11:39 17:43 00:52 WBC RBC Hgb Hct MCV MCH MCHC RDW Plt Count MPV Immature Gran % (Auto) Neut % (Auto) Lymph % (Auto) [place] % (Auto) Eos % (Auto) Baso % (Auto) Lymph # (Auto) [place] # (Auto) Eos # (Auto) Baso # (Auto) Abs Immat Gran (auto) Absolute Neuts (auto) Absolute Nucleated RBC Nucleated RBC % Sodium Potassium Chloride Carbon Dioxide Anion Gap BUN Creatinine Estim Creat Clear Calc Estimated GFR Glucose POC Capillary Glucose 124 H mg/dl 97 mg/dl 116 H mg/dl (65-105) (65-105) (65-105) Calcium Total Bilirubin AST ALT Alkaline Phosphatase Total Protein Albumin 01/22/23 01/22/23 05:31 06:24 WBC 8.1 K/mm3 (4.5-10.0) RBC 4.79 M/mm3 (4.6-6.20) Hgb 14.8 g/dL (14.0-18.0) Hct 44.9 % (42.0-52.0) MCV 93.7 fl (80-100) MCH 30.9 pg (26-34) MCHC 33.0 g/dl (32-36) RDW 12.3 % (11.5-14.5) Plt Count 223 k/mm3 (150-375) MPV 9.6 fl (7.4-10.4) Immature Gran % (Auto) 0.5 % (0-0.5) Neut % (Auto) 61.9 % (45.5-73.1) Lymph % (Auto) 23.6 % (18.3-44.2) [place] % (Auto) 10.5 H % (2.6-8.5) Eos % (Auto) 2.6 % (0-4.4) Baso % (Auto) 0.9 % (0.2-1.2) Lymph # (Auto) 1.91 K/mm3 (0.9-3.2) [place] # (Auto) 0.9 H K/mm3 (0.1-0.6) Eos # (Auto) 0.2 K/mm3 (0-0.3) Baso # (Auto) 0.1 K/mm3 (0.0-0.1) Abs Immat Gran (auto) 0.04 H K/mm3 (0.00-0.031) Absolute Neuts (auto) 5.0 K/mm3 (1.3-6.7) Absolute Nucleated RBC 0.0 K/mm3 (0.0-0.012) Nucleated RBC % 0.0 % (0.0-0.2) Sodium 132 L mmol/L (137-145) Potassium 4.0 mmol/L (3.4-5.0) Chloride 102 mmol/L (98-107) Carbon Dioxide 27 mmol/L (22-30) Anion Gap 3 L mmol/L (8-16) BUN 13 mg/dL (9-20) Creatinine 0.90 mg/dL (0.7-1.3) Estim Creat Clear Calc 70 ml/min Estimated GFR > 60 (59 - ) Glucose 107 mg/dL (65-110) POC Capillary Glucose 121 H mg/dl (65-105) Calcium 9.2 mg/dL
--- NOTE | 2023-01-22 12:03 | P.PCNCC_ITS ---
Cardiac Cath Procedure Note Date of procedure:: 01/22/23 Performing physician:: Girma Asher MD Indication:: Atrial fibrillation of unknown duration Aortic valve stenosis Brief clinical history:: This is a 77-year-old man presenting to the hospital with symptoms of weakness/shortness of breath. He is known to have aortic valve stenosis and has developed atrial fibrillation of unknown chronicity. He has been anticoagulated since arrival to the hospital. An attempt at restoring sinus rhythm has been recommended by my partners as well as evaluation of his aortic valve. Procedure Procedure performed:: Chris/cardioversion Sedation/Medication given:: Sedation per Anesthesia. Please see their separately dictated no Estimated blood loss:: No blood loss Procedure note:: Patient was brought to the GI lab in the postabsorptive state in the supine position where he was sedated by the anesthesia service. When adequate sedation was achieved the esophageal ECHO probe was placed into the hypopharynx and advanced into the esophagus without difficulty. Multiplane CHRIS images were obtained as well as Doppler evaluation of the aortic valve. Direct planimetry was performed of the aortic valve. Following confirmation of the absence of left atrial clot the CHRIS probe was removed and the patient was then DC cardioverted with 200 joules in a synchronized fashion x1 shock. Patient is recovering from sedation in the GI lab procedure was uncomplicated and well tolerated. Findings:: The left atrium is moderately enlarged there is spontaneous contrast or smoke in the left atrium but no significant thrombus is identified. The left atrial appendage is dilated there is no visible thrombus in the appendage. The mitral valve leaflets look structurally unremarkable. The left ventricle is of normal size and appears to contract adequately. The aortic valve is a trileaflet apparatus which does have fibrocalcific thickening. Direct planimetry was performed in the short axis view yielding aortic valve area calculated to be 1.8 cm2. There is a trivial amount of aortic regurgitation seen in the left ventricular outflow tract. Following the imaging described above the patient was DC cardioverted with 200 joules in synchronized fashion restoring normal sinus rhythm with heart rate in the 60s. Conclusion:: 1. Chris/cardioversion following confirmation of absence of left atrial thrombus. 2. Normal sinus rhythm restored with 200 joule synchronized shock 3. Mild aortic valve stenosis by direct planimetry Girma Asher MD [facility]
--- NOTE | 2023-01-22 12:07 | ECHO_ITS ---
This document was recreated with the correct Report Title on 08/14/23.? The original document was signed by Girma Asher MD 01/22/23 1207. Date of procedure:: 01/22/23 Performing physician:: Girma Asher MD Indication:: Atrial fibrillation of unknown duration Aortic valve stenosis Brief clinical history:: This is a 77-year-old man presenting to the hospital with symptoms of weakness/shortness of breath. He is known to have aortic valve stenosis and has developed atrial fibrillation of unknown chronicity. He has been anticoagulated since arrival to the hospital. An attempt at restoring sinus rhythm has been recommended by my partners as well as evaluation of his aortic valve. Procedure Procedure performed:: Chris/cardioversion Sedation/Medication given:: Sedation per Anesthesia. Please see their separately dictated no Estimated blood loss:: No blood loss Procedure note:: Patient was brought to the GI lab in the postabsorptive state in the supine position where he was sedated by the anesthesia service. When adequate sedation was achieved the esophageal ECHO probe was placed into the hypopharynx and advanced into the esophagus without difficulty. Multiplane CHRIS images were obtained as well as Doppler evaluation of the aortic valve. Direct planimetry was performed of the aortic valve. Following confirmation of the absence of left atrial clot the CHRIS probe was removed and the patient was then DC cardioverted with 200 joules in a synchronized fashion x1 shock. Patient is recovering from sedation in the GI lab procedure was uncomplicated and well tolerated. Findings:: The left atrium is moderately enlarged there is spontaneous contrast or smoke in the left atrium but no significant thrombus is identified. The left atrial appendage is dilated there is no visible thrombus in the appendage. The mitral valve leaflets look structurally unremarkable. The left ventricle is of normal size and appears to contract adequately. The aortic valve is a trileaflet apparatus which does have fibrocalcific thickening. Direct planimetry was performed in the short axis view yielding aortic valve area calculated to be 1.8 cm2. There is a trivial amount of aortic regurgitation seen in the left ventricular outflow tract. Following the imaging described above the patient was DC cardioverted with 200 joules in synchronized fashion restoring normal sinus rhythm with heart rate in the 60s. Conclusion:: 1. Chris/cardioversion following confirmation of absence of left atrial thrombus. 2. Normal sinus rhythm restored with 200 joule synchronized shock 3. Mild aortic valve stenosis by direct planimetry Girma Asher MD [facility] This report may have been done utilizing a voice recognition system. Attempts have been made to correct errors. However, there may be uncorrected grammatical, spelling, and recognition errors present. Report Initialized date/time: Girma Asher MD 01/22/231206 Electronically signed by: Girma Asher MD 01/22/231206 [facility]
--- NOTE | 2023-01-22 15:44 | PM.DS ---
DS: Admitting Diagnosis Discharge Date 01/22/23 Admitting Diagnosis AFib RVR DS: Discharge Diagnosis Discharge Diagnosis (1) A-fib: Onset Date: ~01/2023 Qualifiers: Atrial fibrillation type: unspecified Qualified Code(s): I48.91 - Unspecified atrial fibrillation Code(s): I48.91 - Unspecified atrial fibrillation Status: Acute (2) Congestive heart failure: Qualifiers: Heart failure chronicity: acute on chronic Heart failure type: diastolic Qualified Code(s): I50.33 - Acute on chronic diastolic (congestive) heart failure Code(s): I50.9 - Heart failure, unspecified Status: Acute (3) Hyponatremia: Code(s): E87.1 - Hypo-osmolality and hyponatremia Status: Acute (4) Alcoholism: Code(s): F10.20 - Alcohol dependence, uncomplicated Status: Acute DS: Summary Hospital Course Hospital Course: This is a 77-year-old male with a past medical history of rheumatoid arthritis and hypertension that presented to the ED on 01/19/2023 due to shortness of breath and dizziness.? Patient had developed shortness of breath with activity and dizziness in the evening.? Patient denies any chest pain, heart palpitations, or visual changes.? Patient does have a chronic cough without sputum production.? He denies any lower extremity edema.? He does have a smoking history and quit in 1996.? Prior to that he smoked approximately 4-5 packs a day.? He also consumes approximately 10 beers per night.? In the ED he was found to have AFib with a heart rate of 102.? His troponin was within normal limits and a BNP of 484.? His BNP is within normal range for someone his age.? Chest x-ray showed some likely congestive heart failure with cardiomegaly, pulmonary vascular congestion and mild bibasilar pulmonary edema.? CTA negative for pulmonary embolism. Per patient he has no known history of congestive heart failure.? Patient was started on Eliquis and metoprolol. Echocardiogram was ordered and revealed grade 2 diastolic dysfunction with preserved ejection fraction. Cardiology was consulted and recommended CHRIS with conversion. Chris performed on 02/06 and patient was converted into sinus rhythm with heart rate in the 60s. Discussed care with Cardiology they cleared patient for discharge after procedure was successful. Patient did well postoperatively and walking about the room independently as well as tolerating diet. Patient's labs and vital signs are stable and he was medically cleared for discharge. See medication adjustments below. Recommended follow-up with Cardiology as an outpatient. Time Spent with Patient Time attestation: Total time spent providing and/or coordinating discharge services: Exam Narrative: GENERAL: Comfortable, no acute distress HENMT: moist mucous membranes EYES: EOM intact b/l NECK: no lymphadenopathy RESPIRATORY: clear to auscultation but distant breath sounds CARDIO: Now rate controlled. RRR. GI: soft, nontender, bowel sounds present SKIN: no rashes EXTREMITIES: no edema, redness or tenderness DS: Data Data Completed and Pending Labs on day of discharge: Labs from last 24 hours 01/22/23 01/22/23 01/22/23 06:24 05:31 00:52 WBC 8.1 RBC 4.79 Hgb 14.8 Hct 44.9 MCV 93.7 MCH 30.9 MCHC 33.0 RDW 12.3 Plt Count 223 MPV 9.6 Immature Gran % (Auto) 0.5 Neut % (Auto) 61.9 Lymph % (Auto) 23.6 [place] % (Auto) 10.5 H Eos % (Auto) 2.6 Baso % (Auto) 0.9 Lymph # (Auto) 1.91 [place] # (Auto) 0.9 H Eos # (Auto) 0.2 Baso # (Auto) 0.1 Abs Immat Gran (auto) 0.04 H Absolute Neuts (auto) 5.0 Absolute Nucleated RBC 0.0 Nucleated RBC % 0.0 Sodium 132 L Potassium 4.0 Chloride 102 Carbon Dioxide 27 Anion Gap 3 L BUN 13 Creatinine 0.90 Estim Creat Clear Calc 70 Estimated GFR > 60 Glucose 107 POC Capillary Glucose 121 H 116 H Calcium 9.2 Total Bilirubin 0
--- NOTE | 2023-01-22 15:45 | PM.IMPN ---
Progress Note: A&P Assessment and Plan (1) A-fib: Onset Date: ~01/2023 Qualifiers: Atrial fibrillation type: unspecified Qualified Code(s): I48.91 - Unspecified atrial fibrillation Code(s): I48.91 - Unspecified atrial fibrillation Status: Acute Assessment and Plan: Patient found to have AFib with a heart rate of 102 in the ED. Chest x-ray concerning for possible CHF. BNP within normal range of patient's age and troponin negative in the ED. Patient started on Eliquis 5 mg b.i.d. and metoprolol XR 25 mg daily. Will consult care coordination for medication pricing. Echocardiogram revealing grade 2 diastolic dysfunction with preserved ejection fraction with moderate aortic stenosis. Cardiology consulted. CHRIS guided cardioversion results pending (2) Congestive heart failure: Qualifiers: Heart failure type: diastolic Heart failure chronicity: acute on chronic Qualified Code(s): I50.33 - Acute on chronic diastolic (congestive) heart failure Code(s): I50.9 - Heart failure, unspecified Status: Acute Assessment and Plan: echocardiogram revealing grade 2 diastolic dysfunction with preserved ejection fraction and moderate aortic stenosis. Cardiology consulted. Cardiology recommending furosemide 20 mg IV push daily. Chris results pending Recommending follow-up with Cardiology as an outpatient. (3) Hyponatremia: Code(s): E87.1 - Hypo-osmolality and hyponatremia Status: Acute Assessment and Plan: Likely due to patient's Hydrochlorothiazide. Will put diuretics on hold for now. (4) Alcoholism: Code(s): F10.20 - Alcohol dependence, uncomplicated Status: Acute Assessment and Plan: patient drinks approximately 10 beers per night. Initiate CIWA protocol Ativan p.r.n. for CIWA greater than 8. Alcohol level less than 10 on arrival to ED. Plan Patient was on an Bandar and an Arb. Benazepril discontinued. Subjective Date/time seen: 01/22/23 15:45 Interval history: Patient doing well today with no new complaints. He has not had any chest pain, heart palpitations shortness of breath or dizziness. Waiting for Cardiology to clear patient before discharge. Patient underwent chris and cardiac ablation today. Awaiting CHRIS results. Exam Narrative: GENERAL: Comfortable, no acute distress HENMT: moist mucous membranes EYES: EOM intact b/l NECK: no lymphadenopathy RESPIRATORY: clear to auscultation but distant breath sounds CARDIO: Irregular rhythm rate controlled, murmur present GI: soft, nontender, bowel sounds present SKIN: no rashes EXTREMITIES: no edema, redness or tenderness Objective Data Vital Signs Vital Signs: Vital Signs - 24 hr 01/21/23 16:00 01/21/23 21:51 01/21/23 20:00 Temperature 97.4 F L Pulse Rate 81 79 76 Respiratory Rate 18 Blood Pressure 126/69 Pulse Oximetry 93 Oxygen Delivery 01/22/23 00:00 01/22/23 04:00 01/22/23 06:00 Temperature 98.5 F Pulse Rate 104 H 89 85 Respiratory Rate 20 Blood Pressure 121/77 Pulse Oximetry 98 Oxygen Delivery 01/22/23 08:58 01/22/23 09:00 01/22/23 09:00 Temperature Pulse Rate 94 102 H 94 Respiratory Rate Blood Pressure Pulse Oximetry 97 Oxygen Delivery Room Air 01/22/23 11:55 01/22/23 12:21 01/22/23 12:01 Temperature Pulse Rate 74 69 70 Respiratory Rate 21 H 18 20 Blood Pressure 110/67 95/65 L 94/62 L Pulse Oximetry 96 95 97 Oxygen Delivery Room Air Room Air Room Air 01/22/23 12:05 01/22/23 12:10 Temperature Pulse Rate 76 69 Respiratory Rate 17 18 Blood Pressure 96/65 L 95/67 L Pulse Oximetry 99 95 Oxygen Delivery Room Air Room Air Intake/Output Intake/Output: Intake & Output 01/19/23 01/20/23 01/21/23 01/22/23 23:59 23:59 23:59 23:59 Intake Total 480 1190 1280 200 Output Total 7661 1199 1600 825 [facility] -[phone]
[2023-01-22 18:15] LABS: Glucose Point of Care 210 mg/dl (65-105)
[2023-01-22] MEDS: INSULIN ASPART (*BKC) 100 UNITS/ML SUB-Q (18:21)
== END 2023-01-22 18:25 | disposition home or self-care (01) | DRG 308 ==
LOC: ANHED 07:41 → ANH3MEDSUR 09:17
PROVIDERS: Internal Medicine Cardiovascular Disease; Specialist; Admitting Provider Internal Medicine; Emergency Provider Emergency Medicine; PCP Internal Medicine; Visit Provider Internal Medicine Critical Care Medicine
PROC: 5A2204Z Restoration of Cardiac Rhythm, Single (ICD-10-PCS; CPT 93312; principal; 2023-01-22 12:30)
PROC: 5A2204Z Restoration of Cardiac Rhythm, Single (ICD-10-PCS; 2023-01-22 12:30)
DX: I48.91 Unspecified atrial fibrillation (principal); I50.31 Acute diastolic (congestive) heart failure; E87.1 Hypo-osmolality and hyponatremia; I11.0 Hypertensive heart disease with heart failure; I35.0 Nonrheumatic aortic (valve) stenosis; M06.9 Rheumatoid arthritis, unspecified; F10.20 Alcohol dependence, uncomplicated; Z87.891 Personal history of nicotine dependence
CPT/HCPCS: 36415; 71045; 71275; 80048; 80053; 80307; 81003; 82948; 83880; 84443; 84484; 85025; 85027; 92960; 93005; 93306; 93312; 93320; 93325; 96374; 99285; A9270; G0378; J1815; J1940; J2060; J2704; J7030; Q9967

== ENCOUNTER 2023-06-06 13:06 | Emergency (ER) | payer MEDICARE, OTHER, SELFPAY ==
[2023-06-06] VITALS (24 sets, daily range): BP systolic 131–148; BP diastolic 68–98; PULSE 61–79; RESP 14–23; TEMP 36.5; O2SAT 95–100
--- NOTE | ~2023-06-06 | XR_ITS ---
EXAMINATION: XR chest 1V portable DATE: 06/06/2023 14:09 INDICATION: Dyspnea TECHNIQUE: frontal view of the chest was obtained. COMPARISON: Chest radiograph and CT dated 01/19/2023 FINDINGS: No significant change in mild bibasilar reticular opacities which could represent atelectasis and/or mild pulmonary edema. No new airspace opacities, pleural effusion or pneumothorax. Mild cardiomegaly. Multiple old bilateral rib fractures and old bilateral clavicle fractures. IMPRESSION: 1. Mild bibasilar opacities and favor atelectasis and/or mild pulmonary edema. 2. Mild cardiomegaly. Reviewed, dictated and finalized at location A. WASHER
--- NOTE | 2023-06-06 13:09 | ECG_ITS ---
Measurements Intervals [place] Rate: 71 P: 22 [place]: 173 QRS: -20 QRSD: 110 T: 29 QT: 377 QTc: 410 Interpretive Statements SINUS RHYTHM WITH MARKED SINUS ARRHYTHMIA INCOMPLETE RIGHT BUNDLE BRANCH BLOCK [90+ ms QRS DURATION, TERMINAL R IN V1/V2, 40+ ms S IN I/aVL/V4/V5/V6] ABNORMAL ECG COMPARED TO ECG 01/22/2023 11:54:16 NO SIGNIFICANT DIFFERENCE Electronically Signed On 06-06-2023 18:04:14 FIELD CONTRACTOR by Girma Asher M.D.
--- NOTE | 2023-06-06 13:38 | ED.SOB ---
HPI - SOB/Dyspnea General Chief Complaint: Shortness of Breath/Dyspnea Stated Complaint: sob Time Seen by Provider: 06/06/23 13:38 Source: patient and family (son) Mode of arrival: EMS Limitations: no limitations History of Present Illness HPI Narrative: this is a 78 year male who presents with dyspnea on exertion. He notes that he was climbing stairs When his legs feel weak and he became winded. he felt like he had run a mile and had difficulty catching his breath. he was diagnosed with atrial fibrillation in January; He is on Eliquis states he takes his medication b.i.d. without missing doses including his morning dose. normally he can walk without issue. he denies any coughs except for cough when he takes a very deep breaths. no fevers. He denies any chest pain though briefly had chest pressure for a few seconds that resolved; this occurred again in the ambulance, again only lasting a few seconds. No sick contacts. Related Data Home Medications Medication Instructions Recorded Confirmed folic acid 1 mg tablet 1 mg PO DAILY 01/19/23 01/19/23 methotrexate sodium 2.5 mg tablet 10 mg PO WEEKLY 01/19/23 01/19/23 [id number]-ka-krdsg 300 mcg-K 60 1 tablet PO DAILY 01/19/23 01/19/23 mcg-lycop 600 mcg-lutein 300 mcg tablet (Centrum Silver Men) rosuvastatin 10 mg tablet 10 mg PO DAILY 01/19/23 01/19/23 Allergies Allergy/AdvReac Type Severity Reaction Status Date / Time No Known Allergies Allergy Verified 01/19/23 00:28 [facility] Past Medical History Medical History (Updated 06/06/23 @ 18:57 by Grisel Wood MD) A-fib (~01/2023) paroxysmal Aortic stenosis Congestive heart failure History of transesophageal echocardiography (MAGUI) Hypertension Rheumatoid arthritis Family History Family History Father Heart disease of sudden cardiac age 64 Mother Cancer cause of Social History Social History Social History: patient lives with his son and [id number]. He drinks about 10 beers per night and has a approximately 40 year smoking history of 4-5 packs per day. He quit smoking in 1996. Smoking status: Former smoker Alcohol intake: current Drinks per week: 7 Substance use: never Lack of Transportation: No Lack of Food: Never True Current Housing: I Have Housing Concerned About Future Housing: No Difficulty Paying Gas/Electric Bills: No Difficulty Paying for Meds: No Currently Unemployed: No Education: Bachelor's Degree Difficulty w/ Childcare or Family Care: No Spiritual care concerns: No Exam Narrative: GENERAL: Well-appearing, well-nourished, and in no acute distress. HEAD: Normocephalic, atraumatic. EYES: Non injected, non icteric ENT: Nares clear, no rhinorrhea or epistaxis. NECK: Supple. CHEST: Clear to auscultation. No respiratory distress. Speaking in full sentences. no wheezes or crackles. HEART: Holosystolic murmur. ABDOMEN: Soft, nondistended. EXTREMITIES: Normal range of motion. No lower extremity edema. SKIN: Warm, dry, no rash. NEURO: No focal deficits. Alert and oriented x3. PSYCH: Normal mood and affect. Exceedingly pleasant, conversant and engaged in care. Course Vital Signs Vital signs: Vital Signs Temperature 97.7 F 06/06/23 13:01 Pulse Rate 70 06/06/23 13:01 Respiratory Rate 17 06/06/23 13:01 Pulse Oximetry 97 06/06/23 13:01 Temperature 97.7 F 06/06/23 13:01 Pulse Rate 65 06/06/23 16:52 Respiratory Rate 20 06/06/23 16:52 Blood Pressure 131/78 06/06/23 16:52 Pulse Oximetry 97 06/06/23 16:52 Oxygen Delivery Room Air 06/06/23 14:09 MDM - SOB/Dyspnea MDM Narrative Medical decision making narrative: This is a 70-year-old past medical history atrial fibrillation, experienced dyspnea on exertion while climbing stairs. Normally at baseline
[2023-06-06 13:39] LABS: Basophils Absolute Auto 0.1 K/mm3 (0.0-0.1); Basophils Percent Auto 0.6 % (0.2-1.2); Eosinophils Absolute Auto 0.2 K/mm3 (0-0.3); Eosinophils Percent Auto 2.7 % (0-4.4); Hematocrit 44.3 % (42.0-52.0); Hemoglobin 14.2 g/dL (14.0-18.0); Immature Granulocyte Absolute 0.02 K/mm3 (0.00-0.031); Immature Granulocyte Percent A 0.2 % (0-0.5); Lymphocytes Absolute Auto 2.17 K/mm3 (0.9-3.2); Lymphocytes Percent Auto 24.8 % (18.3-44.2); Mean Corpuscular HGB Conc 32.1 g/dl (32-36); Mean Corpuscular Hemoglobin 28.3 pg (26-34); Mean Corpuscular Volume 88.4 fl (80-100); Mean Platelet Volume 9.7 fl (7.4-10.4); Monocytes Absolute Auto 0.9 K/mm3 (0.1-0.6); Neutrophils Absolute Auto 5.4 K/mm3 (1.3-6.7); Neutrophils Percent Auto 61.7 % (45.5-73.1); Platelet Count Result 268 k/mm3 (150-375); Red Blood Count 5.01 M/mm3 (4.6-6.20); Red Cell Distribution Width 12.9 % (11.5-14.5); White Blood Count 8.8 K/mm3 (4.5-10.0)
[2023-06-06 13:48] LABS: Alanine Aminotransferase 44 U/L (6-50); Albumin Level 4.1 g/dL (3.5-5.1); Alkaline Phosphatase 89 U/L (38-126); Anion Gap 6 mmol/L (8-16); Aspartate Amino Transferase 33 U/L (17-59); Bilirubin,Total 0.4 mg/dL (0.2-1.3); Blood Urea Nitrogen 14 mg/dL (9-20); Calcium 9.5 mg/dL (8.4-10.2); Carbon Dioxide 28 mmol/L (22-30); Chloride 104 mmol/L (98-107); Estimated CRCL calculation 91 ml/min; Estimated Glomerular Filt Rate > 60; Glucose 113 mg/dL (65-110); Lipase 142 U/L (23-300); Potassium 3.9 mmol/L (3.4-5.0); Sodium 138 mmol/L (137-145)
[2023-06-06 13:51] LABS: Prothrombin Time 13.6 Seconds (11.1-14.7)
[2023-06-06 13:52] LABS: Partial Thromboplastin Time 33.8 SECONDS (22.3-36.8)
[2023-06-06 13:59] LABS: Troponin I < 0.012 ng/mL (0.000-0.034)
[2023-06-06 14:15] LABS: Influenza A QL RT-PCR Negative (Negative); Influenza B QL RT-PCR Negative (Negative); RSV RNA, RT-PCR Negative (Negative); SARS-CoV-2 RNA PCR Negative (Negative)
[2023-06-06 16:05] LABS: NT Pro B Type Natriuretic Pept 156 pg/mL (19.9-100)
--- NOTE | 2023-06-06 16:23 | ECG_ITS ---
Measurements Intervals [place] Rate: 63 P: 21 CO: 155 QRS: -28 QRSD: 110 T: 1 QT: 405 QTc: 416 Interpretive Statements SINUS RHYTHM WITH SINUS ARRHYTHMIA BORDERLINE LEFT AXIS DEVIATION [QRS AXIS < -20] INCOMPLETE RIGHT BUNDLE BRANCH BLOCK [90+ ms QRS DURATION, TERMINAL R IN V1/V2, 40+ ms S IN I/aVL/V4/V5/V6] ABNORMAL ECG COMPARED TO ECG 06/06/2023 13:10:16 NO SIGNIFICANT CHANGES Electronically Signed On 06-06-2023 18:11:10 BOTTOM FINISHER by Girma Asher M.D.
[2023-06-06 16:57] LABS: Troponin I < 0.012 ng/mL (0.000-0.034)
[2023-06-06 17:05] LABS: D Dimer 0.53 ug/mL (<0.48)
== END 2023-06-06 17:54 | disposition home or self-care (01) ==
PROVIDERS: Emergency Medicine; Emergency Provider Student in an Organized Health Care Education/Training Program; PCP Internal Medicine
DX: R06.00 Dyspnea, unspecified (principal); Z20.822 Contact with and (suspected) exposure to COVID-19; I48.0 Paroxysmal atrial fibrillation; I35.0 Nonrheumatic aortic (valve) stenosis; I50.9 Heart failure, unspecified; I11.0 Hypertensive heart disease with heart failure; M06.9 Rheumatoid arthritis, unspecified; Z87.891 Personal history of nicotine dependence; Z79.01 Long term (current) use of anticoagulants; I51.7 Cardiomegaly; R91.8 Other nonspecific abnormal finding of lung field; I45.10 Unspecified right bundle-branch block
CPT/HCPCS: 36415; 71045; 80053; 83690; 83880; 84484; 85025; 85380; 85610; 85730; 87637; 93005; 99284

== ENCOUNTER 2023-07-22 11:19 | Emergency (ER) | payer MEDICARE, OTHER, SELFPAY ==
--- NOTE | ~2023-07-22 | XR_ITS ---
XR chest 2V DATE: 07/22/2023 12:33 INDICATION: Chest tightness, shortness of breath. History of atrial fibrillation. TECHNIQUE: AP and lateral views COMPARISON: None FINDINGS: Heart size is within normal limits. Aortic calcification, ectasia and tortuosity. No hilar or mediastinal enlargement is evident. No pulmonary infiltrate or consolidation, pleural effusion or pulmonary vascular congestion or pneumothorax is noted. Osteopenia. Multiple old bilateral rib fractures, bilateral clavicle fractures. IMPRESSION: No active cardiopulmonary disease Aortic atherosclerosis Osteopenia Reviewed, dictated and finalized at location B. IC WELFARE DIRECTOR
[2023-07-22 11:20] VITALS: BP 153/76; PULSE 100; RESP 18; TEMP 36.9; O2SAT 97
[2023-07-22 11:35] VITALS: O2SAT 97
--- NOTE | 2023-07-22 11:40 | ECG_ITS ---
Measurements Intervals [place] Rate: 91 P: 32 [place]: 170 QRS: -25 QRSD: 114 T: 16 QT: 357 QTc: 441 Interpretive Statements SINUS RHYTHM BORDERLINE LEFT AXIS DEVIATION [QRS AXIS < -20] INCOMPLETE RIGHT BUNDLE BRANCH BLOCK [90+ ms QRS DURATION, TERMINAL R IN V1/V2, 40+ ms S IN I/aVL/V4/V5/V6] ABNORMAL ECG COMPARED TO ECG 06/06/2023 16:29:10 NO SIGNIFICANT CHANGES Electronically Signed On 07-22-2023 16:56:51 PUBLISHING DIRECTOR by Girma Asher M.D.
[2023-07-22 11:41] VITALS: PULSE 93
[2023-07-22 12:27] LABS: Basophils Percent Auto 0.5 % (0.2-1.2); Eosinophils Absolute Auto 0.2 K/mm3 (0-0.3); Eosinophils Percent Auto 2.5 % (0-4.4); Hematocrit 43.7 % (42.0-52.0); Immature Granulocyte Absolute 0.02 K/mm3 (0.00-0.031); Immature Granulocyte Percent A 0.3 % (0-0.5); Lymphocytes Absolute Auto 1.28 K/mm3 (0.9-3.2); Lymphocytes Percent Auto 16.3 % (18.3-44.2); Mean Corpuscular Hemoglobin 28.1 pg (26-34); Mean Corpuscular Volume 87.6 fl (80-100); Mean Platelet Volume 9.5 fl (7.4-10.4); Monocytes Absolute Auto 0.6 K/mm3 (0.1-0.6); Monocytes Percent Auto 8.2 % (2.6-8.5); Neutrophils Absolute Auto 5.7 K/mm3 (1.3-6.7); Neutrophils Percent Auto 72.2 % (45.5-73.1); Platelet Count Result 284 k/mm3 (150-375); Red Blood Count 4.99 M/mm3 (4.6-6.20); Red Cell Distribution Width 13.1 % (11.5-14.5); White Blood Count 7.9 K/mm3 (4.5-10.0)
[2023-07-22 12:35] LABS: INR 1.1; Prothrombin Time 14.4 Seconds (11.1-14.7)
[2023-07-22 12:36] LABS: Partial Thromboplastin Time 38.9 SECONDS (22.3-36.8)
[2023-07-22 12:37] LABS: Alanine Aminotransferase 41 U/L (6-50); Albumin Level 4.1 g/dL (3.5-5.1); Alkaline Phosphatase 101 U/L (38-126); Anion Gap 4 mmol/L (8-16); Aspartate Amino Transferase 31 U/L (17-59); Bilirubin,Total 0.5 mg/dL (0.2-1.3); Blood Urea Nitrogen 12 mg/dL (9-20); Calcium 9.9 mg/dL (8.4-10.2); Carbon Dioxide 31 mmol/L (22-30); Chloride 105 mmol/L (98-107); Estimated CRCL calculation 88 ml/min; Estimated Glomerular Filt Rate > 60; Glucose 152 mg/dL (65-110); Lipase 139 U/L (23-300); Potassium 3.9 mmol/L (3.4-5.0); Sodium 140 mmol/L (137-145)
[2023-07-22 12:49] LABS: Troponin I < 0.012 ng/mL (0.000-0.034)
--- NOTE | 2023-07-22 13:30 | ED.SOB ---
HPI - SOB/Dyspnea General Chief Complaint: Shortness of Breath/Dyspnea Stated Complaint: SOB/chest tightness Time Seen by Provider: 07/22/23 12:27 78-year-old with a history of rheumatoid arthritis, hypertension, hyperlipidemia here with complaints of shortness of breath since this morning. Patient states about 10 30 this morning he felt short of breath while walking. He denied any chest pain. No history of cough or fever or chills. Source: patient Mode of arrival: ambulatory Limitations: no limitations History of Present Illness MD elicited complaint: shortness of breath Timing: improved Severity: moderate Exacerbating factors: exertion Associated symptoms: denies other symptoms Related Data Home oxygen amount: none Home Medications Medication Instructions Recorded Confirmed folic acid 1 mg tablet 1 mg PO DAILY 01/19/23 01/19/23 methotrexate sodium 2.5 mg tablet 10 mg PO WEEKLY 01/19/23 01/19/23 [id number]-mh-cjihf 300 mcg-K 60 1 tablet PO DAILY 01/19/23 01/19/23 mcg-lycop 600 mcg-lutein 300 mcg tablet (Centrum Silver Men) rosuvastatin 10 mg tablet 10 mg PO DAILY 01/19/23 01/19/23 Allergies Allergy/AdvReac Type Severity Reaction Status Date / Time No Known Allergies Allergy Verified 01/19/23 00:28 Review of Systems Review of Systems: All systems reviewed & are unremarkable except as noted in HPI and below Constitutional: Constitutional: Reports no additional constitutional complaints Eyes: Eyes: Reports no additional eye complaints ENT: Reports system reviewed and no additional complaints, except as documented Cardiovascular: Cardiovascular: Reports no additional cardiovascular complaints Respiratory: Respiratory: Reports as per HPI Gastrointestinal: Gastrointestinal: Reports no additional gastrointestinal complaints Musculoskeletal: Musculoskeletal: Reports no additional musculoskeletal complaints Neurologic: Reports system reviewed and no additional complaints, except as documented Psychiatric: Psychiatric: Reports no additional psychiatric complaints Endocrine: Endocrine: Reports no additional endocrine complaints [facility] Past Medical History Medical History A-fib (~01/2023) paroxysmal Aortic stenosis Congestive heart failure History of transesophageal echocardiography (MAGUI) Hypertension Rheumatoid arthritis Family History Family History Father Heart disease of sudden cardiac age 64 Mother Cancer cause of Social History Social History Social History: patient lives with his son and [id number]. He drinks about 10 beers per night and has a approximately 40 year smoking history of 4-5 packs per day. He quit smoking in 1996. Smoking status: Former smoker Alcohol intake: current Drinks per week: 7 Substance use: never Lack of Transportation: No Lack of Food: Never True Current Housing: I Have Housing Concerned About Future Housing: No Difficulty Paying Gas/Electric Bills: No Difficulty Paying for Meds: No Currently Unemployed: No Education: Bachelor's Degree Difficulty w/ Childcare or Family Care: No Spiritual care concerns: No Exam Narrative: GENERAL: Well-appearing, well-nourished, and in no acute distress. HEAD: Normocephalic, atraumatic. EYES: PERRLA and EOMI. NECK: Supple. CHEST: Clear to auscultation. No respiratory distress. HEART: Regular rate and rhythm. No murmur heard. Normal peripheral pulses. ABDOMEN: Soft, nontender, nondistended, normal active bowel sounds. EXTREMITIES: Normal range of motion. No edema. SKIN: Warm, dry, no rash. NEURO: No focal deficits. Alert and oriented x3. PSYCH: Normal mood and affect. Course Course Emergency Course: patient in no acute distress his SpO2 on room air is 96%. His lungs sound clear I did i
[2023-07-22 13:39] VITALS: BP 128/78; PULSE 75; RESP 15; O2SAT 95
[2023-07-22 13:52] VITALS: BP 127/97; PULSE 66; RESP 15; TEMP 36.8; O2SAT 97
== END 2023-07-22 13:54 | disposition home or self-care (01) ==
PROVIDERS: Emergency Medicine; Emergency Provider Family Medicine; PCP Internal Medicine
DX: R06.02 Shortness of breath (principal); I48.0 Paroxysmal atrial fibrillation; I35.0 Nonrheumatic aortic (valve) stenosis; I50.9 Heart failure, unspecified; I11.0 Hypertensive heart disease with heart failure; E78.5 Hyperlipidemia, unspecified; M06.9 Rheumatoid arthritis, unspecified; Z87.891 Personal history of nicotine dependence; M85.88 Other specified disorders of bone density and structure, other site; I70.0 Atherosclerosis of aorta; Z79.01 Long term (current) use of anticoagulants
CPT/HCPCS: 36415; 71046; 80053; 83690; 84484; 85025; 85610; 85730; 93005; 99284

== ENCOUNTER 2023-08-23 13:09 | Emergency (ER) | payer MEDICARE, OTHER, SELFPAY ==
--- NOTE | ~2023-08-23 | CT_ITS ---
EXAMINATION: CT abdomen pelvis w con DATE: 08/23/2023 15:03 INDICATION: Generalized abdominal pain. TECHNIQUE: Computed tomography (CT) of the abdomen and pelvis was performed with 100 mL Omnipaque 350 intravenous contrast. Automated exposure control and iterative reconstruction technique were employe d. The dose-length product was 1361.78 mGy-cm. COMPARISON: Chest CT 01/19/2023 FINDINGS: The visualized portions of the lung bases demonstrate mild atelectasis. No pleural effusion . The heart size is normal. There are coronary artery calcifications. There are calcifications of aor tic valve. No pericardial effusion. There is a 10 mm cyst in the liver. Calcifications in the spleen are consistent with old granulomatous disease. The gallbladder, pancreas, and adrenal glands are norm al. There are cysts in the kidneys measuring up to 3.9 cm on the left. There is a 17 mm mass of right kidney measuring soft tissue attenuation. There is a 2.4 cm mass of right kidney measuring soft tiss ue attenuation. There is calcified atherosclerosis of the aorta and many of the other arteries. The p rostate is moderately enlarged. There are bilateral inguinal hernias containing fat. There are no dil ated loops of bowel. There is calcified atherosclerosis of the aorta and many of the other arteries. There is a diverticulum of the third portion of the duodenum. There are no pathologically enlarged ly mph nodes. There is no free intraperitoneal fluid. There are old healed rib fractures bilaterally. Th ere are bridging endplate osteophytes at multiple levels in the spine, consistent with diffuse idiopa thic skeletal hyperostosis (DISH). There is a chronic compression fracture of L5. IMPRESSION: 1. Right kidney masses, which may be hemorrhagic cysts or less likely neoplasms. Abdomen CT without a nd with contrast is recommended. Reviewed, dictated and finalized at location E. OLOGY TECHNOLOGIST IMPRESSION: 1. Right kidney masses, which may be hemorrhagic cysts or less likely neoplasms . Abdomen CT without and with contrast is recommended.
[2023-08-23 13:13] VITALS: BP 162/75; PULSE 86; RESP 17; TEMP 36.4; O2SAT 98
--- NOTE | 2023-08-23 13:40 | ED.GENADULT ---
HPI - General Adult General Chief complaint: Abdominal Pain <Jamal Murphy PA-C - Last Filed: 08/23/23 16:14> Stated complaint: abd pain <Jamal Murphy PA-C - Last Filed: 08/23/23 16:14> Time Seen by Provider: 08/23/23 13:40 <Jamal Murphy PA-C - Last Filed: 08/23/23 16:14> Focused HPI: This is a 78-year-old male with PMH of AFib, aortic stenosis, CHF, HTN, rheumatoid arthritis who presents to the ED with chief complaint of abdominal tightness that started this morning. GENERAL: Well-appearing, well-nourished, and in no acute distress. HEAD: Normocephalic, atraumatic. CHEST: Clear to auscultation. No respiratory distress. HEART: Regular rate and rhythm. Abdomen: Abdominal distension present. Mild left upper quadrant tenderness present. Abdomen is soft. Otherwise nontender NEURO: Alert and oriented x3. Patient screened in triage and initial orders placed. Additional care and disposition to be based upon diagnostic testing and treatment. <Jamal Murphy PA-C - Last Filed: 08/23/23 16:14> Source: patient <Jamal Murphy PA-C - Last Filed: 08/23/23 16:14> family (son) <Grisel Wood MD - Last Filed: 08/24/23 09:50> Mode of arrival: ambulatory <Jamal Murphy PA-C - Last Filed: 08/23/23 16:14> Limitations: no limitations <Jamal Murphy PA-C - Last Filed: 08/23/23 16:14> History of Present Illness HPI narrative: Patient presents with abdominal pain/tightness that started this morning. No associated N/V/D. No history abdominal surgeries. LBM was small, non bloody. Usually has a few bowel movements a day. Last oral intale was coffee and oatmeal and toast this morning. Is on a water pill which causes frequent urination. Distended abdomen has caused some shortness of breath. Pain/tightness primarily across the epigastrium. <Grisel Wood MD - Last Filed: 08/24/23 09:50> Related Data Home medications: Home Medications Medication Instructions Recorded Confirmed folic acid 1 mg tablet 1 mg PO DAILY 01/19/23 01/19/23 methotrexate sodium 2.5 mg tablet 10 mg PO WEEKLY 01/19/23 01/19/23 yrnpiafx-nd-jjaqg 300 mcg-K 60 1 tablet PO DAILY 01/19/23 01/19/23 mcg-lycop 600 mcg-lutein 300 mcg tablet (Centrum Silver Men) rosuvastatin 10 mg tablet 10 mg PO DAILY 01/19/23 01/19/23 <Jamal Murphy PA-C - Last Filed: 08/23/23 16:14> Allergies/adverse reactions: Allergies Allergy/AdvReac Type Severity Reaction Status Date / Time No Known Allergies Allergy Verified 01/19/23 00:28 <Jamal Murphy PA-C - Last Filed: 08/23/23 16:14> [facility] Past Medical History Medical History: Medical History A-fib (~01/2023) paroxysmal Aortic stenosis Congestive heart failure History of transesophageal echocardiography (MAGUI) Hypertension Rheumatoid arthritis Wears dentures Wears glasses <Jamal Murphy PA-C - Last Filed: 08/23/23 16:14> Family History Family History: Family History Father Heart disease of sudden cardiac age 64 Mother Cancer cause of <Jamal Murphy PA-C - Last Filed: 08/23/23 16:14> Social History Social History: Social History (Updated 08/24/23 @ 09:39 by Grisel Wood MD) Social History: patient lives with his son and [id number]. He drinks about 10 beers per night and has a approximately 40 year smoking history of 4-5 packs per day. He quit smoking in 1996. 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 Smoking status: Former smoker Alcohol intake: current Drinks per week: 7 Substance use: never Lack of Transportation: No Lack of Food: Never True Current Housing: I Have Housing Concerned About Future Housing: No Difficulty Paying Gas/Electric Bills: No Difficulty Paying for Meds: No Currently Unemployed: No
[2023-08-23 14:08] LABS: Basophils Absolute Auto 0.1 K/mm3 (0.0-0.1); Basophils Percent Auto 0.6 % (0.2-1.2); Eosinophils Absolute Auto 0.2 K/mm3 (0-0.3); Eosinophils Percent Auto 2.5 % (0-4.4); Hematocrit 47.4 % (42.0-52.0); Hemoglobin 15.1 g/dL (14.0-18.0); Immature Granulocyte Absolute 0.03 K/mm3 (0.00-0.031); Immature Granulocyte Percent A 0.4 % (0-0.5); Lymphocytes Absolute Auto 1.61 K/mm3 (0.9-3.2); Lymphocytes Percent Auto 19.2 % (18.3-44.2); Mean Corpuscular HGB Conc 31.9 g/dl (32-36); Mean Corpuscular Hemoglobin 28.5 pg (26-34); Mean Corpuscular Volume 89.4 fl (80-100); Mean Platelet Volume 9.6 fl (7.4-10.4); Monocytes Absolute Auto 0.7 K/mm3 (0.1-0.6); Monocytes Percent Auto 7.8 % (2.6-8.5); Neutrophils Absolute Auto 5.8 K/mm3 (1.3-6.7); Neutrophils Percent Auto 69.5 % (45.5-73.1); Platelet Count Result 325 k/mm3 (150-375); Red Cell Distribution Width 13.2 % (11.5-14.5); White Blood Count 8.4 K/mm3 (4.5-10.0)
[2023-08-23 14:14] LABS: Appearance Urine Clear (Clear); Bilirubin Urine Negative (Negative); Blood Urine Negative (Negative); Color Urine Yellow (Yellow); Glucose Urine UA Negative (Negative); Ketones Urine Negative (Negative); Leukocyte Esterase Ur Negative LEU/UL (Negative); Nitrate Urine Negative (Negative); Protein Urine Negative (Negative); Specific Grav Ur 1.006 (1.001-1.035); Urobilinogen Urine 0.2 mg/dL (<2.0)
[2023-08-23 14:15] LABS: Estimated CRCL calculation 79 ml/min; Estimated Glomerular Filt Rate > 60
[2023-08-23 14:19] LABS: Lactic Acid Reflex 1.6 mmol/L (0.7-2.0)
[2023-08-23 14:20] LABS: Alanine Aminotransferase 38 U/L (6-50); Albumin Level 4.4 g/dL (3.5-5.1); Alkaline Phosphatase 104 U/L (38-126); Anion Gap 5 mmol/L (8-16); Aspartate Amino Transferase 37 U/L (17-59); Bilirubin,Total 0.4 mg/dL (0.2-1.3); Blood Urea Nitrogen 13 mg/dL (9-20); Calcium 10.5 mg/dL (8.4-10.2); Carbon Dioxide 33 mmol/L (22-30); Chloride 104 mmol/L (98-107); Estimated CRCL calculation 89 ml/min; Estimated Glomerular Filt Rate > 60; Glucose 97 mg/dL (65-110); Lipase 159 U/L (23-300); Potassium 4.2 mmol/L (3.4-5.0); Sodium 142 mmol/L (137-145)
[2023-08-23 14:24] LABS: Add Urine Microscopic? NO
[2023-08-23] MEDS: HALOPERIDOL LACTATE 5 MG/ML VIAL 2.5 MG IV PUSH (14:44)
[2023-08-23 16:07] VITALS: BP 142/92; PULSE 96; RESP 18; TEMP 36.4; O2SAT 96
== END 2023-08-23 16:08 | disposition home or self-care (01) ==
PROVIDERS: Physician Assistant; Emergency Provider Student in an Organized Health Care Education/Training Program; PCP Internal Medicine
DX: R14.0 Abdominal distension (gaseous) (principal); N28.89 Other specified disorders of kidney and ureter; I48.0 Paroxysmal atrial fibrillation; I35.0 Nonrheumatic aortic (valve) stenosis; I50.9 Heart failure, unspecified; I11.0 Hypertensive heart disease with heart failure; M06.9 Rheumatoid arthritis, unspecified; Z87.891 Personal history of nicotine dependence; Z79.01 Long term (current) use of anticoagulants
CPT/HCPCS: 36415; 74177; 80048; 80076; 81003; 83605; 83690; 85025; 96374; 99284; J1630; Q9967

== ENCOUNTER 2023-10-08 11:25 | Observation (INO) | payer MEDICARE, OTHER, SELFPAY ==
[2023-10-08] VITALS (30 sets, daily range): BP systolic 133–167; BP diastolic 65–101; PULSE 75–96; RESP 16–30; TEMP 36.6–37.1; O2SAT 93–98; BMI 29.8
--- NOTE | ~2023-10-08 | CT_ITS ---
EXAMINATION: CTA chest PE protocol DATE: 10/08/2023 16:07 INDICATION: chest pain, sob, elevated d-dimer TECHNIQUE: Computed tomography angiography (CTA) of the chest was performed with 100 mL Omnipaque-350 intravenous contrast timed to evaluate the pulmonary arteries. Coronal maximum intensity projection 3D-reconstructions were created by the technologist. The dose-length product (DLP) was 1978.22 mGy-cm . Automated exposure control and iterative reconstruction technique were employed. COMPARISON: X-ray chest, same date; CTPA 01/19/2023, report only. FINDINGS: Lung parenchyma and airways: Mild bibasilar scarring/atelectasis. Senescent changes. Mild interlobula r and intralobular septal thickening. Calcified right lower lobe granuloma. Airways clear. Pleura: Unremarkable. Thoracic inlet, axillae and chest wall: Unremarkable. Thoracic aorta: No significant dilation. No dissection. Moderate atherosclerotic calcification. Mediastinum: Calcified left hilar nodes. Dilated central pulmonary arteries as can be seen with pulmo nary arterial hypertension. Heart and pericardium: Mild cardiomegaly. Left atrial enlargement. Left ventricular hypertrophy. Mitr al and aortic valve calcification. Coronary artery calcifications: Mild. Upper abdomen: No significant finding. Bones: No acute osseous finding. Multiple old healed bilateral rib fractures. Old healed bilateral cl avicular fractures. Exaggerated thoracic kyphosis. Multilevel facet and posterior element fusions. Pulmonary arteries: Study quality: Borderline contrast bolus, even after repeated imaging attempt. No pulmonary emboli detected. IMPRESSION: No CT evidence of acute pulmonary embolus. Pulmonary opacities may represent mild edema overlying chronic senescent/interstitial changes. Reviewed, dictated and finalized at location K. IMPRESSION: No CT evidence of acute pulmonary embolus. Pulmonary opacities may represent mild edema overlying chronic senescent/inters titial changes.
--- NOTE | ~2023-10-08 | XR_ITS ---
EXAMINATION: XR chest 2V DATE: 10/08/2023 12:24 INDICATION: Chest pain. Shortness of breath. TECHNIQUE: Frontal and lateral views of the chest were obtained. COMPARISON: Chest 2 views 07/22/2023, CT abdomen and pelvis 08/23/2023 FINDINGS: There is mild atelectasis in the lower lung zones. No pleural effusion or pneumothorax. The heart size is normal. There are old healed rib fractures bilaterally. There are old healed fractures of the clavicles. IMPRESSION: 1. Mild atelectasis in the lower lung zones. Reviewed, dictated and finalized at location E.
--- NOTE | ~2023-10-08 | NM_ITS ---
EXAMINATION: NM kiel stress w perfusion DATE: 10/09/2023 14:09 INDICATION: Chest pain. TECHNIQUE: Rest images were obtained following intravenous administration of 9 mCi Tc99m tetrofosmin (Myoview). The patient was infused intravenously with Lexiscan (Regadenoson). Then, 39.3 mCi Tc99m te trofosmin (Myoview) was administered intravenously, and stress images were obtained. Data was reconst ructed into short axis and horizontal and vertical long axis SPECT images. Gated SPECT images were al so obtained. COMPARISON: None. FINDINGS: There is a small mild perfusion defect at the junction of the apical lateral, mid inferola teral and mid anterolateral segments. This appears largely reversible consistent with ischemia with e quivocal very small residual perfusion defect at the mid anterolateral segment potentially representi ng an associated mild underlying infarct. There is normal left ventricular chamber size, wall motion and ejection fraction. Left ventricular ejection fraction measures 65%. IMPRESSION: 1. Small region of mild reversible ischemia with possible superimposed very small mild nonreversible infarct in the circumflex coronary artery vascular distribution. 2. Left ventricular ejection fraction measuring 65%. Reviewed, dictated and finalized at location A. IMPRESSION: 1. Small region of mild reversible ischemia with possible superimposed very sma ll mild nonreversible infarct in the circumflex coronary artery vascular distri bution. 2. Left ventricular ejection fraction measuring 65%.
--- NOTE | 2023-10-08 11:32 | ECG_ITS ---
SEE SCANNED COPY FOR CONFIRMED REPORT MTDD
[2023-10-08 11:45] LABS: Basophils Absolute Auto 0.1 K/mm3 (0.0-0.1); Basophils Percent Auto 0.5 % (0.2-1.2); Eosinophils Absolute Auto 0.2 K/mm3 (0-0.3); Eosinophils Percent Auto 1.6 % (0-4.4); Hematocrit 43.6 % (42.0-52.0); Hemoglobin 14.1 g/dL (14.0-18.0); Immature Granulocyte Absolute 0.04 K/mm3 (0.00-0.031); Immature Granulocyte Percent A 0.4 % (0-0.5); Lymphocytes Absolute Auto 1.75 K/mm3 (0.9-3.2); Lymphocytes Percent Auto 18.5 % (18.3-44.2); Mean Corpuscular HGB Conc 32.3 g/dl (32-36); Mean Corpuscular Volume 89.5 fl (80-100); Mean Platelet Volume 9.6 fl (7.4-10.4); Monocytes Absolute Auto 0.8 K/mm3 (0.1-0.6); Monocytes Percent Auto 8.2 % (2.6-8.5); Neutrophils Absolute Auto 6.7 K/mm3 (1.3-6.7); Neutrophils Percent Auto 70.8 % (45.5-73.1); Platelet Count Result 283 k/mm3 (150-375); Red Blood Count 4.87 M/mm3 (4.6-6.20); Red Cell Distribution Width 12.9 % (11.5-14.5); White Blood Count 9.4 K/mm3 (4.5-10.0)
[2023-10-08 12:00] LABS: Partial Thromboplastin Time 39.3 Seconds (22.3-36.8)
[2023-10-08 12:07] LABS: Alanine Aminotransferase 30 U/L (6-50); Albumin Level 4.4 g/dL (3.5-5.1); Alkaline Phosphatase 105 U/L (38-126); Anion Gap 5 mmol/L (4-12); Aspartate Amino Transferase 28 U/L (17-59); Bilirubin,Total 0.6 mg/dL (0.2-1.3); Blood Urea Nitrogen 14 mg/dL (9-20); Calcium 9.9 mg/dL (8.4-10.2); Carbon Dioxide 28 mmol/L (22-30); Chloride 104 mmol/L (98-107); Estimated CRCL calculation 88 ml/min; Estimated Glomerular Filt Rate > 60; Glucose 156 mg/dL (65-110); Lipase 131 U/L (23-300); Potassium 4.1 mmol/L (3.4-5.0); Sodium 137 mmol/L (137-145)
--- NOTE | 2023-10-08 12:11 | ED.CHESTPAIN ---
HPI - Chest Pain General Chief Complaint: Chest Pain Stated Complaint: chest pressure Time Seen by Provider: 10/08/23 11:59 History of Present Illness HPI narrative: Patient is a 78 year old male with history of HTN, Afib on eliquis, CHF, HTN, RA here with chest pain. He notes that he woke up this morning feeling like his normal self, he proceeded to start getting ready for the day and then describes himself as feeling off . He notes that it felt as though his head was going to blow up , describes it as a pressure sensation throughout his head. At the same time he was experiencing some midsternal chest pain, worse on the right side than the left, nonradiating. He denies any exertional symptoms but does note that he had some associated shortness of breath. His family at bedside notes that he looked quite flushed and had difficulty with breathing at that time. he now notes that symptoms have significantly improved. He did have a prior history of multiple rib fractures in the past, has had some associated arthritis in his chest wall since that time and believes that could be contributing to some of his pain today. He denies any prior history of coronary artery disease, no prior stress test or cardiac catheterization. He does follow with the [facility] here at this hospital. No cough or congestion, no recent travel, compliant with meds including blood thinners. Related Data Home Medications Medication Instructions Recorded Confirmed folic acid 1 mg tablet 1 mg PO DAILY 01/19/23 01/19/23 methotrexate sodium 2.5 mg tablet 10 mg PO WEEKLY 01/19/23 01/19/23 feefathe-ib-sepde 300 mcg-K 60 1 tablet PO DAILY 01/19/23 01/19/23 mcg-lycop 600 mcg-lutein 300 mcg tablet (Centrum Silver Men) rosuvastatin 10 mg tablet 10 mg PO DAILY 01/19/23 01/19/23 Allergies Allergy/AdvReac Type Severity Reaction Status Date / Time No Known Allergies Allergy Verified 01/19/23 00:28 Review of Systems Review of Systems: All systems reviewed & are unremarkable except as noted in HPI and below PMFSH Past Medical History Medical History A-fib (~01/2023) paroxysmal Aortic stenosis Congestive heart failure History of transesophageal echocardiography (MAGUI) Hypertension Rheumatoid arthritis Wears dentures Wears glasses Family History Family History Father Heart disease of sudden cardiac age 64 Mother Cancer cause of Social History Social History (Updated 08/24/23 @ 09:39 by Grisel Wood MD) Social History: patient lives with his son and [id number]. He drinks about 10 beers per night and has a approximately 40 year smoking history of 4-5 packs per day. He quit smoking in 1996. 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 Smoking status: Former smoker Alcohol intake: current Drinks per week: 7 Substance use: never Lack of Transportation: No Lack of Food: Never True Current Housing: I Have Housing Concerned About Future Housing: No Difficulty Paying Gas/Electric Bills: No Difficulty Paying for Meds: No Currently Unemployed: No Education: Bachelor's Degree Difficulty w/ Childcare or Family Care: No Spiritual care concerns: No Exam Narrative: GENERAL: Well-appearing, well-nourished, and in no acute distress. HEAD: Normocephalic, atraumatic. EYES: PERRLA and EOMI. ENT: Nares clear. Mucous membranes moist. NECK: Supple. CHEST: Clear to auscultation. No respiratory distress. HEART: Regular rate and rhythm. Normal peripheral pulses. ABDOMEN: Soft, nontender, nondistended. EXTREMITIES: Normal range of motion. No edema. No calf tenderness. SKIN: Warm, dry, no rash. NEURO: No focal deficits. Alert and oriented x3. PSYCH: Normal mood and affect. Course Course Emergency Course: Chart review performed.
--- NOTE | 2023-10-08 12:13 | ECG_ITS ---
SEE SCANNED COPY FOR CONFIRMED REPORT MTDD
[2023-10-08 12:17] LABS: Troponin I < 0.012 ng/mL (0.000-0.034)
[2023-10-08 13:52] LABS: D Dimer 1.44 ug/mL (<0.48)
[2023-10-08 13:57] LABS: NT Pro B Type Natriuretic Pept 232 pg/mL (19.9-100)
[2023-10-08 14:29] LABS: Influenza A QL RT-PCR Negative (Negative); Influenza B QL RT-PCR Negative (Negative); RSV RNA, RT-PCR Negative (Negative); SARS-CoV-2 RNA PCR Negative (Negative)
[2023-10-08 15:15] LABS: Troponin I < 0.012 ng/mL (0.000-0.034)
[2023-10-08] MEDS: LORazepam INJ (*CRX) 2 MG/ML VIAL 1 MG IV PUSH (15:26)
--- NOTE | 2023-10-08 17:35 | ECG_ITS ---
SEE SCANNED COPY FOR CONFIRMED REPORT MTDD
[2023-10-08 18:01] LABS: Troponin I < 0.012 ng/mL (0.000-0.034)
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
[2023-10-08] MEDS: HEPARIN SOD/D5W 100 UNITS/ML 25,000 UNITS/250 ML BAG 15 UNITS IV CONT (18:59)
--- NOTE | 2023-10-08 21:46 | ADMGEN ---
This patient, Mac Saldaña, was admitted to IMU Room 211-01. Patient/family oriented to hospital policies and general routines including ID bracelet, bed and alarms, visiting hours, pain management, procedures, bathroom and other care routines, personal items, smoking policy, room service/diet, and visiting hours. Information on how to activate the Rapid Response Team has been discussed. Patient/Family are encouraged to report perceived risks to care and to ask questions if they do not understand what they are told or what they should do.
[2023-10-09] VITALS (8 sets, daily range): BP systolic 132–140; BP diastolic 73–76; PULSE 65–88; RESP 17–20; TEMP 36.3–36.5; O2SAT 93–98
[2023-10-09 02:07] LABS: Partial Thromboplastin Time 57.5 Seconds (22.3-36.8)
[2023-10-09] MEDS: HEPARIN SODIUM 5,000 UNITS/ML VIAL 3500 UNITS IV PUSH (02:26)
--- NOTE | 2023-10-09 05:00 | EST_ITS ---
Patient Info Name: Mac Saldaña Age: 78 years : 1945 Gender: Male Ht: 71 in Wt: 213 lbs BSA: 2.22 m2 HR: 75 bpm BP: 172 / 80 mmHg Heart Rhythm: Sinus Rhythm Exam Date: 10/09/2023 12:09 PM Exam Location: Echo Lab Patient Status: Outpatient Admit Date: 10/08/2023 Staff Ordering Physician: Shreya Landeros MD Attending Provider: Shreya Landeros MD Exercise Technologist: Patria Gray CT Exercise Physician: Jim Kwon MD Exam Type: CA stress kiel w NM Study Info Indications R07.89 - Other chest pain A regadenoson stress test was performed. Summary 1. No abnormal ST/T wave changes with Lexiscan administration. 2. No significant arrhythmias were observed during Lexiscan administration. 3. No chest discomfort with stress test. 4. Please correlate with nuclear medicine images, reported separately. Protocol: Lexiscan Stress ECG Details Stage: REST Duration (min): 1 min : 39 sec HR (bpm): 83 SBP (mmHg): 172 DBP (mmHg): 80 Stage: REST Duration (min): 13 min : 48 sec HR (bpm): 79 SBP (mmHg): 172 DBP (mmHg): 80 Stage: STAGE 1 Duration (min): 1 min : 0 sec HR (bpm): 96 SBP (mmHg): 162 DBP (mmHg): 106 Stage: RECOVERY Duration (min): 1 min : 0 sec HR (bpm): 93 SBP (mmHg): 162 DBP (mmHg): 106 Stage: RECOVERY Duration (min): 2 min : 0 sec HR (bpm): 91 SBP (mmHg): 162 DBP (mmHg): 106 Stage: RECOVERY Duration (min): 3 min : 0 sec HR (bpm): 89 SBP (mmHg): 158 DBP (mmHg): 85 Stage: RECOVERY Duration (min): 3 min : 12 sec HR (bpm): 88 SBP (mmHg): 158 DBP (mmHg): 85 Rest HR: 79 bpm Peak HR: 99 bpm Rest Sys BP: 172 mmHg Peak Sys BP: 162 mmHg Max Pred HR: 142 bpm % Max Pred HR: 70 % Target HR: 121 bpm Max RPP: 16,038 bpm*mmHg Termination Reason: Completed protocol Cardiac Symptoms: None Total Time: 1 min : 0 sec Rest Cavazos BP: 80 mmHg Peak Cavazos BP: 106 mmHg Total Dose: 0.4 mg Resting ECG Sinus rhythm, right bundle-branch block, isolated PVC. Stress ECG No abnormal ST/T wave changes with Lexiscan administration. Arrhythmias No significant arrhythmias were observed during Lexiscan administration. Report Signatures
[2023-10-09 05:30] LABS: Anion Gap 6 mmol/L (4-12); Blood Urea Nitrogen 12 mg/dL (9-20); Calcium 10.3 mg/dL (8.4-10.2); Carbon Dioxide 28 mmol/L (22-30); Chloride 107 mmol/L (98-107); Estimated CRCL calculation 71 ml/min; Estimated Glomerular Filt Rate > 60; Glucose 107 mg/dL (65-110); Magnesium 2.4 mg/dL (1.6-2.3); Sodium 141 mmol/L (137-145)
[2023-10-09 09:25] LABS: Partial Thromboplastin Time 94.1 Seconds (22.3-36.8)
[2023-10-09] MEDS: HEPARIN SOD/D5W 100 UNITS/ML 25,000 UNITS/250 ML BAG 17 UNITS IV CONT (09:39)
--- NOTE | 2023-10-09 10:26 | PM.CNCAR ---
Assessment and Plan Assessment and plan (1) Chest pain: Qualifiers: Chest pain type: unspecified Qualified Code(s): R07.9 - Chest pain, unspecified Code(s): R07.9 - Chest pain, unspecified Status: Acute Assessment and Plan: Atypical chest pain resolved ruled out for myocardial infarction with negative serial cardiac enzymes. ECG without acute ischemic changes. Given patient's age, risk factors including hypertension, hyperlipidemia reasonable to proceed with ischemic evaluation with Lexiscan nuclear stress test to assess for myocardial ischemia. Patient verbalized understanding and agreed with plan of care. Further recommendations to follow. Discussed at length. All questions answered to their satisfaction. May discontinue heparin infusion. If stress test is unremarkable resume Eliquis 5 mg twice daily. Etiology remains unclear although more likely GI versus musculoskeletal as described. There was some improvement with pressing on the chest yet as symptoms persisted with shortness of breath cannot exclude underlying CAD. Further recommendation to follow after review. Discussed at length. His stress test unremarkable, patient may be discharged home to follow-up with BT see cardiology as scheduled next month and communicate any new concerns or limitations. (2) Aortic stenosis: Code(s): I35.0 - Nonrheumatic aortic (valve) stenosis Status: Acute Assessment and Plan: Oqdi-ia-yllewfxv aortic stenosis by echocardiogram. Continue to monitor clinically. No acute issues at this time. Follow up outpatient with Cardiology. (3) A-fib: Onset Date: ~01/2023 Qualifiers: Atrial fibrillation type: unspecified Qualified Code(s): I48.91 - Unspecified atrial fibrillation Code(s): I48.91 - Unspecified atrial fibrillation Status: Acute Assessment and Plan: Maintaining sinus rhythm. Continue Toprol XL 25 mg daily and Eliquis 5 mg twice daily. (4) Hypertension: Qualifiers: Hypertension type: primary hypertension Qualified Code(s): I10 - Essential (primary) hypertension Code(s): I10 - Essential (primary) hypertension Status: Acute Assessment and Plan: Stable, reasonably controlled at present. Rather hypertensive at times after presentation currently under better control. Continue losartan 100 mg daily, Toprol XL 25 mg daily, Lasix 20 mg daily. (5) Chronic anticoagulation: Code(s): Z79.01 - retirement (current) use of anticoagulants Status: Acute Assessment and Plan: Continue Eliquis 5 mg twice daily. Monitor for bleeding. History of Present Illness History of Present Illness Consult date/time: Date of service: 10/09/23 10:26 Requesting physician: Verito Hernández MD Consult reason: chest pain Reason For Visit: Chest Pain Narrative: Patient is a very pleasant 78-year-old male with a past medical history significant for paroxysmal atrial fibrillation on systemic anticoagulation with Eliquis, history of aortic stenosis, rheumatoid arthritis, hypertension who was in the emergency department complaints of progressive development shortness of breath, transient diaphoresis, mild upper epigastric/ lower chest discomfort extending to the left and right constant for several hours and resolving spontaneously. He has ruled out for myocardial infarction with negative enzymes and ECG without acute ischemic ECG changes in sinus rhythm. He has no prior known history of CAD. Patient reports he had been feeling very well until this point able to work in the yard over the weekend with his son without any difficulty whatsoever. He states he woke morning presentation feeling well she showered and went to eat breakfast and began to feel less well. He can feel short breath will and just not feeling right. He then developed discomfort which then persisted and given progressive shortness of breath present to the ER via EMS.
--- NOTE | 2023-10-09 11:18 | PC.NURSE ---
Pt to Nuclear Medicine via wheelchair for Lexiscan. Heparin drip paused for testing.
--- NOTE | 2023-10-09 11:26 | PC.NURSE ---
Nuclear Medicine called RN to notify RN that pt is claustrophobic and is unable to proceed with testing. Mary Ann Rodriguez PA-C notified of issues. New order for 1mg Ativan IVP now.
[2023-10-09] MEDS: LORazepam INJ (*CRX) 2 MG/ML VIAL 1 MG IV PUSH (11:30)
--- NOTE | 2023-10-09 14:28 | PC.NURSE ---
Addendum entered by Doris Sevilla RN 10/09/23 14:28: This took place at 1305 Original Note: Pt returned from nuclear medicine via wheelchair. No issues noted
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
== END 2023-10-09 16:15 | disposition home or self-care (01) ==
LOC: ANHED 12:08 → ANHIMU 23:30
PROVIDERS: Preventive Medicine Aerospace Medicine; Admitting Provider General Practice; Emergency Provider Student in an Organized Health Care Education/Training Program; PCP Internal Medicine; Visit Provider Hospitalist
DX: R07.9 Chest pain, unspecified (principal); I35.0 Nonrheumatic aortic (valve) stenosis; I48.91 Unspecified atrial fibrillation; J98.11 Atelectasis; I11.0 Hypertensive heart disease with heart failure; I50.9 Heart failure, unspecified; M06.9 Rheumatoid arthritis, unspecified; R79.1 Abnormal coagulation profile; E78.5 Hyperlipidemia, unspecified; Z20.822 Contact with and (suspected) exposure to COVID-19; F10.90 Alcohol use, unspecified, uncomplicated; Z87.891 Personal history of nicotine dependence; Z82.49 Family history of ischemic heart disease and other diseases of the circulatory system; Z79.01 Long term (current) use of anticoagulants; Z79.891 Long term (current) use of opiate analgesic; Z79.899 Other long term (current) drug therapy
CPT/HCPCS: 36415; 71046; 71275; 78452; 80048; 80053; 83690; 83735; 83880; 84484; 85025; 85380; 85610; 85730; 87637; 93005; 93017; 96365; 96366; 96375; 96376; 99285; A9502; G0378; J1644; J2060; J2785; Q9967

== ENCOUNTER 2024-06-26 10:54 | Emergency (ER) | payer MEDICARE, OTHER, SELFPAY ==
--- NOTE | ~2024-06-26 | XR_ITS ---
EXAMINATION: XR chest 2V DATE: 06/26/2024 11:31 INDICATION: Shortness of breath. TECHNIQUE: Frontal and lateral views of the chest were obtained. COMPARISON: Chest 2 views 10/08/2023, chest CT 10/08/2023 FINDINGS: There is mild atelectasis in the lower lung zones. No pleural effusion or pneumothorax. The heart size is normal. There are old healed bilateral rib fractures. There are old healed fractures o f the clavicles. IMPRESSION: 1. Mild atelectasis in the lower lung zones. Reviewed, dictated and finalized at location A. ENTERS SUPERVISOR
--- NOTE | ~2024-06-26 | CT_ITS ---
EXAMINATION: CTA chest PE protocol DATE: 06/26/2024 13:56 TRANSFER AND LINE UP WORKER INDICATION: Exertional dyspnea. History of A. fib on Eliquis TECHNIQUE: Computed tomographic angiography (CTA) of the chest was performed with 100 mL Omnipaque-35 0 intravenous contrast. The dose-length product was 899.17 mGy-cm. Maximum intensity projection 3D-re constructions of the aorta and other arteries were constructed by the technologist on a separate work station. Examination is markedly limited by poor bolus timing COMPARISON: 10/08/2023. FINDINGS: No large filling defect within the main or proximal pulmonary arteries. Calcified atherosclerotic disease within the thoracic aorta without dissection or aneurysmal dilatati on. Interstitial thickening bilaterally without a discrete mass or consolidation. Diffuse pleural thickening, right more than left. Fluid attenuation foci within the bilateral kidneys, left greater than right, unchanged from prior IMPRESSION: Examination is markedly limited by poor bolus timing No large filling defects within the main or proximal pulmonary arteries No dissection or aneurysmal dilatation within the thoracic aorta. Remainder of nonacute findings as detailed above. Reviewed, dictated and finalized at location A. SFER AND LINE UP WORKER
[2024-06-26 11:00] VITALS: BP 163/113; PULSE 88; RESP 17; TEMP 36.8; O2SAT 98
--- NOTE | 2024-06-26 11:00 | ECG_ITS ---
Test Date: 2024-06-26 11:11:20 Measurements Intervals [place] Rate: 87 P: 21 AR: 169 QRS: -32 QRSD: 116 T: 35 QT: 361 QTc: 435 Interpretive Statements SINUS RHYTHM ST-ELEVATION V1 V2, CONSIDER BRUGADA PATTERN LEFT AXIS DEVIATION [QRS AXIS < -30] S1-S2-S3 PATTERN, CONSISTENT WITH PULMONARY DISEASE, RVH, OR NORMAL VARIANT INCOMPLETE RIGHT BUNDLE BRANCH BLOCK [90+ ms QRS DURATION, TERMINAL R IN V1/V2, 40+ ms S IN I/aVL/V4/V5/V6] POSSIBLE SEPTAL MYOCARDIAL INFARCTION , OF INDETERMINATE AGE [30 ms Q WAVE IN V1/V2] ABNORMAL ECG Electronically Signed On 06-27-2024 10:31:49 TECHNICAL PROGRAMS MANAGER by Evaristo Rhodes M.D.
[2024-06-26 11:07] VITALS: PULSE 90; O2SAT 98
[2024-06-26 11:19] LABS: Basophils Percent Auto 0.3 % (0.2-1.2); Eosinophils Absolute Auto 0.2 K/mm3 (0-0.3); Eosinophils Percent Auto 2.5 % (0-4.4); Hematocrit 42.9 % (42.0-52.0); Hemoglobin 13.9 g/dL (14.0-18.0); Immature Granulocyte Absolute 0.03 K/mm3 (0.00-0.031); Immature Granulocyte Percent A 0.3 % (0-0.5); Lymphocytes Absolute Auto 1.81 K/mm3 (0.9-3.2); Lymphocytes Percent Auto 20.6 % (18.3-44.2); Mean Corpuscular HGB Conc 32.4 g/dl (32-36); Mean Corpuscular Hemoglobin 28.6 pg (26-34); Mean Corpuscular Volume 88.3 fl (80-100); Mean Platelet Volume 9.3 fl (7.4-10.4); Monocytes Absolute Auto 0.8 K/mm3 (0.1-0.6); Monocytes Percent Auto 8.9 % (2.6-8.5); Neutrophils Absolute Auto 5.9 K/mm3 (1.3-6.7); Neutrophils Percent Auto 67.4 % (45.5-73.1); Platelet Count Result 275 k/mm3 (150-375); Red Blood Count 4.86 M/mm3 (4.6-6.20); Red Cell Distribution Width 12.9 % (11.5-14.5); White Blood Count 8.8 K/mm3 (4.5-10.0)
[2024-06-26 11:33] LABS: Alanine Aminotransferase 30 U/L (6-50); Albumin Level 4.3 g/dL (3.5-5.1); Alkaline Phosphatase 93 U/L (38-126); Anion Gap 8 mmol/L (4-12); Aspartate Amino Transferase 28 U/L (17-59); Bilirubin,Total 0.7 mg/dL (0.2-1.3); Blood Urea Nitrogen 14 mg/dL (9-20); Calcium 9.8 mg/dL (8.4-10.2); Carbon Dioxide 29 mmol/L (22-30); Chloride 99 mmol/L (98-107); Estimated CRCL calculation 97 ml/min; Estimated Glomerular Filt Rate > 60; Glucose 119 mg/dL (65-110); Potassium 4.2 mmol/L (3.4-5.0); Sodium 136 mmol/L (137-145)
--- NOTE | 2024-06-26 12:30 | ED.SOB ---
HPI - SOB/Dyspnea General Chief Complaint: Shortness of Breath/Dyspnea Stated Complaint: sob Time Seen by Provider: 06/26/24 12:05 History of Present Illness HPI Narrative: 79-year-old male with a past medical history significant for congestive heart failure, chronic hypertension, atrial fibrillation on Eliquis. Patient presents to the emergency room today with exertional dyspnea. He states that he was just bending over to tie his shoes today and he felt so short of breath like he ran a mi. He states that ambulance to put him on nasal cannula but he was 95% on room air here in the ED. He received 324 mg aspirin prior to arrival. No complaints of chest pain or chest pressure. Patient states he has a history of hypertension AFib and felt like he was having AFib flare. Takes rate control medications of metoprolol at home. He has not missed any medication dosages and has been otherwise in his normal state of health without any recent injuries or illnesses. Family is present at bedside states that he has been more breathless lately especially with exertion. Patient denies any leg calf or lower extremity cramping or swelling and no history of DVT or PE to his knowledge. Related Data Home Medications ?Medication ?Instructions ?Recorded ?Confirmed ?Last Taken ?Type folic acid 1 mg tablet 1 mg PO DAILY 01/19/23 10/08/23 Unknown History methotrexate sodium 2.5 mg tablet 10 mg PO WEEKLY 01/19/23 10/08/23 Unknown History [id number] 300 mcg-K 60 1 tablet PO DAILY 01/19/23 10/08/23 Unknown History mcg-lycop 600 mcg-lutein 300 mcg tablet (Centrum Silver Men) rosuvastatin 10 mg tablet 10 mg PO DAILY 01/19/23 10/08/23 Unknown History acetaminophen 500 mg capsule 1,000 mg PO Q6H PRN Pain (Scale 10/08/23 10/08/23 Unknown History Score 1-3) tramadol 50 mg tablet 50 mg PO Q6H PRN Pain (Scale Score 10/08/23 10/08/23 Unknown History 4-6) Allergies Allergy/AdvReac Type Severity Reaction Status Date / Time No Known Allergies Allergy Verified 06/26/24 11:07 Review of Systems Review of Systems: As reviewed above in HPI [facility] Past Medical History Medical History Wears glasses Wears dentures History of transesophageal echocardiography (MAGUI) Congestive heart failure Aortic stenosis Rheumatoid arthritis Hypertension A-fib (~01/2023) paroxysmal Family History Family History Father Heart disease of sudden cardiac age 64 Mother Cancer cause of Social History Social History Social History: patient lives with his son and [id number]. He drinks about 10 beers per night and has a approximately 40 year smoking history of 4-5 packs per day. He quit smoking in 1996. 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 Smoking status: Former smoker Alcohol intake: never Drinks per week: 7 Substance use: never Substance use type: does not use Do You Feel Safe in your Home?: Yes Lack of Transportation: No Lack of Food: Never True Current Housing: I Have Housing Concerned About Future Housing: No Difficulty Paying Gas/Electric Bills: No Difficulty Paying for Meds: No Currently Unemployed: No Education: Bachelor's Degree Difficulty w/ Childcare or Family Care: No Spiritual care concerns: No Exam Narrative: GENERAL: Some labored breathing but overall well-appearing, not any acute distress, able to answer questions with some conversational dyspnea. HEAD: [Normocephalic, atraumatic.] EYES: [PERRLA and EOMI.] ENT: Nares clear, no rhinorrhea or epistaxis. Mucous membranes moist. NECK: Supple. CHEST: Labored breathing with conversational dyspnea, clear to auscultation without any signs of retractions HEART: [Regular rate and rhythm]. No murmur heard. [Normal peripheral pulses.] ABDOMEN: [Soft, nondistended], [nontender], [No rigidity or guarding] EXTREMITIES: Normal range of motion. [No edema.] SKIN: Warm, dry, no rash. NEURO: [No focal deficits]. Alert and oriented [x3.] PSYCH: [Normal mood and affect.] Course Vital Signs Vital signs: Vital Signs Temperature 36.8 C 06/26/24 11:00 Pulse Rate 88 06/26/24 11:00 Respiratory Rate 17 06/26/24 11:00 Blood Pressure 163/113 H 06/26/24 11:00 Pulse Oximetry 98 06/26/24 11:00 Oxygen Delivery Room Air 06/26/24 11:00 Temperature 36.8 C 06/26/24 11:00 Pulse Rate 94 06/26/24 14:24 Respiratory Rate 22 H 06/26/24 14:24 Blood Pressure 139/67 06/26/24 14:24 Pulse Oximetry 94 06/26/24 14:24 Oxygen Delivery Room Air 06/26/24 11:07 MDM - SOB/Dyspnea MDM Narrative Medical decision making narrative: 79-year-old male with history of congestive heart failure, atrial fibrillation, hypertension. He takes Eliquis, Lasix, metoprolol and losartan. Patient presents to the emergency department today with worsening dyspnea. Patient had some exertional dyspnea to while he was trying to bend over and tie issues, felt very short of breath. He states he felt like he just ran a mi. He has been able to ambulate although he feels exertionally dyspneic even with short distances. No chest pain or chest pressure. He states he takes his heart failure or AFib is acting up on him. He has not missed any medication dosages and denies any recent illnesses or injuries. Examination shows some labored breathing with conversational dyspnea but overall clear breath sounds, strong symmetric pulses without any irregularity, warm extremities without any calf swelling or asymmetry. Suspicion presently is for potential minor CHF exacerbation, transient episodes of AFib potentially even with RVR, electrolyte deficiencies from his Lasix, pneumonia, potentially even a pulmonary embolism although he is on Eliquis which makes this less likely. A cardiac workup was ordered including CBC, CMP, D-dimer, troponin, chest x-ray and a CT angio of his chest. Patient presently is saturating well on room air without any tachycardia tachypnea. Mildly hypertensive the blood pressure 163/113. Workup shows no leukocytosis or anemia. Normal platelet levels. Electrolytes within normal limits, normal creatinine, normal glucose. Troponin negative x2. BNP very mildly elevated 188. Unremarkable CMP. Chest x-ray without any signs of pneumonia. CT angiography shows no large filling defects in the main or proximal pulmonary arteries, no dissection or aneurysms detected, some interstitial thickening noted without any mass or consolidations. Patient was re-evaluated and asymptomatic. I informed of his negative workup here in the emergency department and plan of care going forward. He does have elevated risk factors but states that he has close cardiology follow-up at the end of the month and will follow up with his primary doctor outpatient. Patient is safe and stable for discharge at this time. He was given strict return precautions. Medical Records Attestation: I reviewed the patient's medical records. Lab Data Attestation: I reviewed the patient's lab results. 06/26/24 11:11 06/26/24 11:11 Labs: Lab Results 06/26/24 06/26/24 Range/Units 11:11 14:30 WBC 8.8 (4.5-10.0) K/mm3 RBC 4.86 (4.6-6.20) M/mm3 Hgb 13.9 L (14.0-18.0) g/dL Hct 42.9 (42.0-52.0) % MCV 88.3 (80-100) fl MCH 28.6 (26-34) pg MCHC 32.4 (32-36) g/dl RDW 12.9 (11.5-14.5) % Plt Count 275 (150-375) k/mm3 MPV 9.3 (7.4-10.4) fl Immature Gran % (Auto) 0.3 (0-0.5) % Neut % (Auto) 67.4 (45.5-73.1) % Lymph % (Auto) 20.6 (18.3-44.2) % [place] % (Auto) 8.9 H (2.6-8.5) % Eos % (Auto) 2.5 (0-4.4) % Baso % (Auto) 0.3 (0.2-1.2) % Lymph # (Auto) 1.81 (0.9-3.2) K/mm3 [place] # (Auto) 0.8 H (0.1-0.6) K/mm3 Eos # (Auto) 0.2 (0-0.3) K/mm3 Baso # (Auto) 0.0 (0.0-0.1) K/mm3 Abs Immat Gran (auto) 0.03 (0.00-0.031) K/mm3 Absolute Neuts (auto) 5.9 (1.3-6.7) K/mm3 Absolute Nucleated RBC 0.000 (0.0-0.012) K/mm3 Nucleated RBC % 0.0 (0.0-0.2) % Sodium 136 L (137-145) mmol/L Potassium 4.2 (3.4-5.0) mmol/L Chloride 99 (98-107) mmol/L Carbon Dioxide 29 (22-30) mmol/L Anion Gap 8 (4-12) mmol/L BUN 14 (9-20) mg/dL Creatinine 0.65 L (0.7-1.3) mg/dL Estim Creat Clear Calc 97 ml/min Estimated GFR > 60 (59 - ) Glucose 119 H (65-110) mg/dL Calcium 9.8 (8.4-10.2) mg/dL Total Bilirubin 0.7 (0.2-1.3) mg/dL AST 28 (17-59) U/L ALT 30 (6-50) U/L Alkaline Phosphatase 93 (38-126) U/L Troponin I 0.013 < 0.012 (0.000-0.034) ng/mL NT-Pro-B Natriuret Pep 188 H (19.9-100) pg/mL Total Protein 8.0 (6.3-8.2) g/dL Albumin 4.3 (3.5-5.1) g/dL Imaging Data Attestation: I personally reviewed and interpreted this imaging study as follows: My impression: Impressions Chest X-Ray 06/26/24 11:38 IMPRESSION: 1. Mild atelectasis in the lower lung zones. Chest CTA 06/26/24 13:54 IMPRESSION: Examination is markedly limited by poor bolus timing No large filling defects within the main or proximal pulmonary arteries No dissection or aneurysmal dilatation within the thoracic aorta. Remainder of nonacute findings as detailed above. Discharge Plan Discharge Clinical Impression: Exertional shortness of breath Patient Disposition: Home, Self-Care Condition: Stable Instructions: Antibiotic Form, Dyspnea (ED) Additional Instructions: Your cardiac workup appears very reassuring, your cardiac enzymes were negative x2, no elevated BNP consistent with heart failure exacerbation, CT showed no pulmonary embolism or blood clot. Please keep your cardiology follow-up appointment this month. If you have any worsening or new symptoms please return to the emergency department at that time for evaluation. Patient Language: Citizen Of [place] Prescriptions: No Action methotrexate sodium 2.5 mg tablet 10 mg PO WEEKLY Rx Instructions: pt takes on Tuesdays folic acid 1 mg tablet 1 mg PO DAILY rosuvastatin 10 mg tablet 10 mg PO DAILY Centrum Silver Men [phone] mcg Tablet 1 tablet PO DAILY Eliquis 5 mg Tablet 5 mg PO Q12HR Qty: 60 0RF metoprolol succinate [Toprol XL] 25 mg Tablet Extended Release 24 Hr 25 mg PO QAM Qty: 30 0RF losartan 100 mg Tablet 100 mg PO DAILY Qty: 30 0RF furosemide 20 mg tablet 20 mg PO DAILY Qty: 30 0RF tramadol 50 mg tablet 50 mg PO Q6H PRN (Reason: Pain (Scale Score 4-6)) acetaminophen 500 mg capsule 1,000 mg PO Q6H PRN (Reason: Pain (Scale Score 1-3)) Follow-up/Referrals: Stormy,Imtiaz Morales MD [Primary Care Provider] - Stand Alone Forms: Work/School Release IP Time of Disposition: 16:15
[2024-06-26] MEDS: LORazepam INJ (*CRX) 2 MG/ML VIAL 0.5 MG IV PUSH (13:34)
[2024-06-26 13:36] LABS: NT Pro B Type Natriuretic Pept 188 pg/mL (19.9-100); Troponin I 0.013 ng/mL (0.000-0.034)
[2024-06-26 14:24] VITALS: BP 139/67; PULSE 94; RESP 22; O2SAT 94
--- NOTE | 2024-06-26 14:25 | ECG_ITS ---
Test Date: 2024-06-26 14:57:31 Measurements Intervals [place] Rate: 88 P: 26 AK: 168 QRS: -48 QRSD: 112 T: 35 QT: 360 QTc: 437 Interpretive Statements SINUS RHYTHM ST ELEVATION V1, V2, CONSIDER BRUGADA PATTERN S1-S2-S3 PATTERN, CONSISTENT WITH PULMONARY DISEASE, RVH, OR NORMAL VARIANT PATTERN CONSISTENT WITH PULMONARY DISEASE INCOMPLETE RIGHT BUNDLE BRANCH BLOCK [90+ ms QRS DURATION, TERMINAL R IN V1/V2, 40+ ms S IN I/aVL/V4/V5/V6] LEFT ANTERIOR FASCICULAR BLOCK [QRS AXIS <= -45, QR IN I, RS IN II] PROBABLE SEPTAL MYOCARDIAL INFARCTION , OF INDETERMINATE AGE [35 ms Q WAVE IN V1/V2] ABNORMAL ECG Electronically Signed On 06-27-2024 10:39:27 COMPARATOR OPERATOR by Evaristo Rhodes M.D.
[2024-06-26 15:08] LABS: Troponin I < 0.012 ng/mL (0.000-0.034)
== END 2024-06-26 16:33 | disposition home or self-care (01) ==
PROVIDERS: Emergency Medicine; Emergency Provider Student in an Organized Health Care Education/Training Program; PCP Internal Medicine
DX: R06.02 Shortness of breath (principal); I50.9 Heart failure, unspecified; I48.0 Paroxysmal atrial fibrillation; I11.0 Hypertensive heart disease with heart failure; I35.0 Nonrheumatic aortic (valve) stenosis; M06.9 Rheumatoid arthritis, unspecified; Z87.891 Personal history of nicotine dependence; Z79.01 Long term (current) use of anticoagulants; Z79.899 Other long term (current) drug therapy
CPT/HCPCS: 36415; 71046; 71275; 80053; 83880; 84484; 85025; 93005; 96374; 96375; 99284; J2060; Q9967

== ENCOUNTER 2025-03-31 09:25 | Emergency (ER) | payer MEDICARE, OTHER, SELFPAY ==
--- OUTSIDE RECORDS SUMMARY | 2004-06-27 09:00 | XMS_ITS | Continuity of Care Document ---
Author Organization [facility] Address [id number] [place] [address] [address] [place] [address] Phone Care Team Providers Care Plug Stitcher Name Role Phone Emmanuelle Newsome Unavailable Unavailable Advance Directives Directive Yes / No Effective Date File Name No Information Encounters Encounter Description Practice Location Reason(s) For Visit Diagnoses Date Provider Providers Copied on Encounter [facility], [id number] [place] [address] [address], [place], [place], [id number], [place] tel:[phone] [facility] No Information [address] , [address], [place], [address], [place]. tel:[phone] Family History Family Member Type Diagnosis Age At Onset No Information Payers Payer name Insurance type Covered libertarian ID Authoriza tion(s) BCBS [place] Commercial [id number] Social History Type Description Quantity Date Captured Comments Sex Male Smoking Status No Information Chief Complaint And Reason For Visit No Information Reason For Referral Reason For Referral No Information History Of Present Illness Encounter Date Complaint History Of Prese nt Illness No Information Functional Status Date Functional Assessmen t No Information Instructions Date Instruction Additional Infor mation No Information Assessments Type Assessment Date No Information Patient Care Teams Name Effective Dates (start - stop) Status Members No Information
[2025-03-31] VITALS (10 sets, daily range): BP systolic 125–176; BP diastolic 74–90; PULSE 64–89; RESP 14–26; TEMP 36.8; O2SAT 95–99
--- NOTE | ~2025-03-31 | XR_ITS ---
Examination: XR chest 2V Clinical History: chest discomfort HX OF HBP Comparison: 06/26/2024 Technique: PA and Lateral Findings: Cardiomediastinal silhouette normal size and configuration. Mildly increased airspace opacity left lower lobe. No acute bony abnormality. Osteopenia IMPRESSION: 1. Left lower lobe pneumonitis or developing airspace opacity. Reviewed, dictated and finalized at location R.
--- NOTE | 2025-03-31 09:45 | ECG_ITS ---
Test Date: 2025-03-31 09:51:44 Measurements Intervals [place] Rate: 85 P: 34 CO: 174 QRS: -28 QRSD: 110 T: 22 QT: 349 QTc: 416 Interpretive Statements SINUS RHYTHM POSSIBLE LEFT ATRIAL ENLARGEMENT INCOMPLETE RIGHT BUNDLE BRANCH BLOCK BORDERLINE R WAVE PROGRESSION, ANTERIOR LEADS BASELINE ARTIFACT- I, II, III, AVR, AVL, AVF BORDERLINE ECG Compared to ECG 06/26/2024 14:57:31 NO SIGNIFICANT CHANGE Electronically Signed On 03-31-2025 09:56:47 CDT by Cipriano English D.O.
[2025-03-31 10:05] LABS: Hematocrit 43.1 % (42.0-52.0); Hemoglobin 13.6 g/dL (14.0-18.0); Immature Granulocyte Percent A 0.4 % (0-0.5); Lymphocytes Absolute Auto 1.68 K/mm3 (0.9-3.2); Mean Corpuscular HGB Conc 31.6 g/dl (32-36); Mean Corpuscular Hemoglobin 28.0 pg (26-34); Mean Corpuscular Volume 88.7 fl (80-100); Nucleated Red Blood Cells Absolute Auto 0.000 K/mm3 (0.0-0.012); Nucleated Red Blood Cells Perc 0.0 % (0.0-0.2); Platelet Count Result 269 k/mm3 (150-375); Red Blood Count 4.86 M/mm3 (4.6-6.20); White Blood Count 9.5 K/mm3 (4.5-10.0)
[2025-03-31 10:17] LABS: INR 0.9; Prothrombin Time 12.5 Seconds (11.1-14.7)
[2025-03-31 10:18] LABS: Partial Thromboplastin Time 33.8 Seconds (22.3-36.8)
[2025-03-31 10:20] LABS: Alanine Aminotransferase 30 U/L (6-50); Albumin Level 4.4 g/dL (3.5-5.1); Alkaline Phosphatase 89 U/L (38-126); Anion Gap 6 mmol/L (4-12); Aspartate Amino Transferase 31 U/L (17-59); Bilirubin,Total 0.3 mg/dL (0.2-1.3); Blood Urea Nitrogen 12 mg/dL (9-20); Calcium 9.9 mg/dL (8.4-10.2); Carbon Dioxide 29 mmol/L (22-30); Chloride 103 mmol/L (98-107); Estimated CRCL calculation 85 ml/min; Estimated Glomerular Filt Rate > 60; Glucose 133 mg/dL (65-110); Lipase 102 U/L (23-300); Potassium 4.3 mmol/L (3.4-5.0); Sodium 138 mmol/L (137-145); Total Protein 8.0 g/dL (6.3-8.2)
[2025-03-31 10:31] LABS: Troponin I < 0.012 ng/mL (0.000-0.034)
--- OUTSIDE RECORDS SUMMARY | 2025-03-31 10:33 | XMS_ITS | Encounter Summary ---
Author Organization [facility] Healthcare Address [address] [place] [address] Care Team Providers Care Television Production Clerk Name Role Phone Imtiaz Burrows MD Primary Care Provider [phone] Encounter Details Date Type Department Care Team (Late st Contact Info) Description 08/19/2024 Cardiology Conference [facility] Non-invasive Cardiac Diagnostic Testing [address] [place], [place] [id number] Moy Case, VERONIKA Social History Tobacco Use Types Packs/Day Years Used Date Smoking Tobacco: Former Cigarettes Smokeless Tobacco: Never Sex and Gender Information Value Date Recorded Sex Assigned at Not on file 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
--- OUTSIDE RECORDS SUMMARY | 2025-03-31 10:33 | XMS_ITS | Encounter Summary ---
Author Organization [facility] Healthcare Address [address] [place] [address] Care Team Providers Care Food Inspector Name Role Phone Imtiaz Burrows MD Primary Care Provider [phone] Encounter Details Date Type Department Care Team (Late st Contact Info) Description 10/21/2024 [facility] Post Discharge Follow up phone call [address] [address] [place] Beck Social History Tobacco Use Types Packs/Day Years Used Date Smoking Tobacco: Former Cigarettes Q uit: 1995 Smokeless Tobacco: Former Chew Comments:Smokeless tobacco i n his 20's AUDIT-C Answer Date Recorded Q1: How often do you have a drink containing alcohol? Never 10/15/2024 Q2: How many drinks containi ng alcohol do you have on a typical day when you are drinking? Patient does not drink Q3: How often do you have si x or more drinks on one occasion? Never 10/15/2024 Personal Safety Answer Date Recorded Have you ever been in or are you currently in a harmful physical or emotional relationship or is someone making you feel afraid or unsafe? 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
--- OUTSIDE RECORDS SUMMARY | 2025-03-31 10:33 | XMS_ITS | Clinical Summary ---
Author Organization [facility] Address [address] [place] [address] Care Team Providers Care Marine Pipe Welder Name Role Phone Girish Glez MD Primary Care Provider [phone] Berry Oliva MD Unavailable Unavailable Source Comments [facility],non-owned Affiliates and Associated Physician Practices is amultiple site organization consisting of ambulatory clinics and hospital sitesin [place], [place], [place] and [place]. This disclosure is being madepursuant to the Care Everywhere program and may not contain all information available regarding this patient. Last updated 18.[facility] Allergies No known active allergies Medications * Be aware that medications may not be up to date on this document. Alwaysverify current medications with the patient. MULTI-VITAMIN PO Take by mouth. QD Ac tive amlodipine-joby azepril (LOTREL) 5-10 MG capsule Take 1 Cap by mouth daily. Active methotrexate 2.5 MG tabletIndicati ons:Uveitis TAKE 4 TABLETS BY MOUTH EVERY WEEK 48 Tab 12 4 Active naproxen (NAPROSYN) 500 MG tabletIndicati ons:Metatarsal clement of right foot Take 1 Tab by mouth 2 times daily as needed for Pain. For 7 days 60 Tab 6 4 Active acetaminophen (TYLENOL) 500 MG tabletIndicati ons:Metatarsal clement of right foot Take 2 Tabs by mouth 3 times daily. Maximum allowable Acetaminophen amount = 4 Grams (4000 mg) / 24 hours. 4 Active Active Problems Problem Noted Date Diagnosed Date Chest pain 09/06/2010 High risk medications (not anticoagulants) long- term use 02/15/2010 Overview (11/30/2010): 02/15/2010 CBC CMP wnl 11/30/2010 CBC LFT wnl Urticaria 11/01/2009 Uveitis 07/17/2008 Overview (05/02/2010): EYE EXAM 06/21/03 MRI: LUMBAR SPINE 08/05/03 (+) DJD, ARTHRITIS OF SPINE NO COMP, NO STENOSIS 11/02/2008 no problems since starting MTX 3 years ago. Immunizations Immunization Administration Dates Next Due INFLUENZA VACCINE 04/25/2010 PNEUMOCOCCAL PPSV23 05/02/2006 PPD 07/27/2003,06/26/1996 ZOSTER VACCINE, LIVE 04/30/2010 Family History Medical History Relation Name Comments Other Other 1 FM HX CAD Other Other 2 FM HX UTERINE C A Relation Name Status Comments Father Unknown Mother Unknown Other 1 Other 2 Social History Tobacco Use Types Packs/Day Years Used Date Smoking Tobacco: Former Cigarettes 1 40 0 [birth year]17/1956 - 06/17/1996 Smokeless Tobacco: Never Alcohol Use Standard Drinks/Week Comments Yes 0 (1 standard drink = 0.6 oz pur e alcohol) DRINKS ON OCCASS. 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 on file Not on file Not on file Last Filed Vital Signs Vital Sign Reading Time Taken Comments Blood Pressure 120/68 11/04/2014 11:07 AM CDT Pulse 76 11/04/2014 11:07 AM CDT Temperature 36.6 C (97.8 F) 09/07/2010 3:13 PM CDT Respiratory Rate 16 09/07/2010 3:13 PM CDT Oxygen Saturation 99% 09/07/2010 3:13 PM CDT Inhaled Oxygen Concentration - - Weight 90.4 kg (199 lb 6.4 oz) 11/04/2014 11:07 AM CDT Height 177.8 cm (5' 10) 11/04/2014 11:07 AM CDT Body Mass Index 28.61 11/04/2014 11:07 AM CDT Plan of Treatment Health Maintenance Due Date Last Done Comments DTAP/TDAP/TD VACCINES (1 - Tdap) 1964 PNEUMOCOCCAL VACCINE 50+ (2 of 2 - PCV) 05/02/2007 05/02/2006 ZOSTER VACCINE (2 of 3) 06/25/2010 04/30/2010 Respiratory Syncytial Virus (RSV) Vaccine Pt: or over 60 yrs (1 - 1-dose 75+ series) 2020 DEPRESSION SCREENING 06/17/2024 COVID-19 VACCINE (1 - 2023-2 5 season) 2025 INFLUENZA VACCINE (#1) 2025 04/25/2010 HEPATITIS B VACCINE Aged Out No longe r eligible based on patient's age to complete this topic HIB VACCINE Aged Out No longer eligi ble based on patient's age to complete this topic HPV VACCINE Aged Out No longer eligi ble based on patient's age to complete this topic MENINGOCOCCAL (Group B) VACC INE SHARED DECISION-MAKING Aged Out No longer eligibl e based on patient's age to complete this topic MENINGOCOCCAL GROUPS A/C/Y/W VACCINE Aged Out No longer eligible b ased on patient's age to complete this topic Insurance [employer] ([employer]) Address: [address] [place] [address] MEDICARE COMMERCIAL GENERIC [address] [place] [address] COMMERCIAL GENERIC Advance Directives Documents on File Type Date Recorded Patient Corn Husker Expl anation Adv Directive/Living Will/POA 09/08/2010 12:15 PM * Full Code (Latest Code Status on File) Date Activated Date Inactivated Comments 09/06/2010 7:48 AM 09/08/2010 4:31 AM Care Teams Marine Pipe Welder Relationship Specialty Start Date End Date Girish Glez MD [address] [place], [place] [id number] PCP - General 11/02/08 Berry Oliva MD [address] [place] [address] Rheumatology 04/27/11
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
--- NOTE | 2025-03-31 12:52 | ECG_ITS ---
Test Date: 2025-03-31 12:57:49 Measurements Intervals [place] Rate: 67 P: 32 DC: 162 QRS: -20 QRSD: 118 T: 23 QT: 393 QTc: 416 Interpretive Statements SINUS RHYTHM WITH SINUS ARRHYTHMIA POSSIBLE LEFT ATRIAL ENLARGEMENT INCOMPLETE RIGHT BUNDLE BRANCH BLOCK DELAYED PRECORDIAL R/S TRANSITION MINIMAL Q WAVES- HIGH LATERAL LEADS BASELINE ARTIFACT- I, II, III, AVR, AVL BORDERLINE ECG Compared to ECG 03/31/2025 09:51:44 NO SIGNIFICANT CHANGE Electronically Signed On 03-31-2025 14:15:02 CDT by Cipriano English D.O.
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
[2025-03-31 13:30] LABS: Troponin I < 0.012 ng/mL (0.000-0.034)
--- OUTSIDE RECORDS SUMMARY | 2025-03-31 13:58 | XMS_ITS | Clinical Summary ---
Author Organization [facility] Address [address] [place] [address] Care Team Providers Care Blood Bank Calendar Control Clerk Name Role Phone Girish Glez MD Primary Care Provider [phone] Berry Oliva MD Unavailable Unavailable Source Comments [facility],non-owned Affiliates and Associated Physician Practices is amultiple site organization consisting of ambulatory clinics and hospital sitesin [place], [place], [place] and [place]. This disclosure is being madepursuant to the Care Everywhere program and may not contain all information available regarding this patient. 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 Not on file Not [...] patient's age to complete this topic Insurance Rebit MEDICARE COMMERCIAL GENERIC [address] [place] [address] COMMERCIAL GENERIC Advance Directives Documents on File Type Date Recorded Patient Pcas Expl anation Adv Directive/Living Will/POA 09/08/2010 12:15 PM * Full Code (Latest Code Status on File) Date Activated Date Inactivated Comments 09/06/2010 7:48 AM 09/08/2010 4:31 AM Care Teams Blood Bank Calendar Control Clerk Relationship Specialty Start Date End Date Girish Glez MD [address] [place], [place] [phone] PCP - General 11/02/08 Berry Oliva MD [address] [place] [address] Rheumatology 04/27/11
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
--- OUTSIDE RECORDS SUMMARY | 2025-03-31 13:58 | XMS_ITS | Encounter Summary ---
Author Organization [facility] Address [address] [place] [address] Care Team Providers Care Forepart Rasper Name Role Phone Imtiaz Burrows MD Primary Care Provider [phone] Encounter Details Date Type Department Care Team (Late st Contact Info) Description 08/19/2024 Cardiology [facility] Non-invasive Cardiac Diagnostic Testing [address] [place], [place] [id number] Moy Case, VERONIKA Social History Tobacco Use Types Packs/Day Years Used Date Smoking Tobacco: Former Cigarettes Smokeless Tobacco: Never Sex and Gender Information Value Date Recorded Sex Assigned at Not on file 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
--- OUTSIDE RECORDS SUMMARY | 2025-03-31 13:58 | XMS_ITS | Encounter Summary ---
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
== END 2025-03-31 14:08 | disposition home or self-care (01) ==
PROVIDERS: Emergency Provider Student in an Organized Health Care Education/Training Program; PCP Internal Medicine
DX: I50.9 Heart failure, unspecified (principal); I11.0 Hypertensive heart disease with heart failure; I35.0 Nonrheumatic aortic (valve) stenosis; I48.0 Paroxysmal atrial fibrillation; M06.9 Rheumatoid arthritis, unspecified; Z87.891 Personal history of nicotine dependence; Z79.01 Long term (current) use of anticoagulants; Z79.899 Other long term (current) drug therapy; I45.10 Unspecified right bundle-branch block; R94.31 Abnormal electrocardiogram [ECG] [EKG]
CPT/HCPCS: 36415; 71046; 80053; 83690; 84484; 85025; 85610; 85730; 93005; 99284